=== PATIENT | male | born 1955 | race Caucasian/White ===

== ENCOUNTER → 2016-08-16 | Outpatient (CLI) | payer OTHER, MEDICARE ==
[~2016-08-16] MED LIST: ATOR40TA PO; BABY81CH PO; BRIM0.2S OU; BRIM2OPD OU; CEFT500T3 PO; CLOP75TA2 PO; COLA100C PO; FAMO40TA3 PO; FERR325T16 PO; FOLI1TAB2 PO; GLUC500T PO; GLUC850T OR; INSULANT SC; ISTA0.5S OU; LASIX PO; LATA5OPD OU; LOSA25TA8 PO; METO25TAB PO; MULTCAP PO; No Historical Meds; PERC5TAB8 OR; PERC7.5T8 OR; PERC7.5T8 PO; PERCOCET PO; PRIN5TAB PO; TIMO25OPD OU; TYLE650T30 PO; VITA-130 PO; XALA0.002 OU; ZOCO10TA PO; ertapenem IV
[2016-08-16 18:49] LABS: ALBUMIN 3.6 GM/DL (3.2-5.2); ALBUMIN/GLOBULIN RATIO 1.16 (1.00-1.93); BILIRUBIN,TOTAL 0.8 MG/DL (0.2-1.0); CALCIUM LEVEL 9.3 MG/DL (8.5-10.1); CREATININE FOR GFR 1.65 MG/DL (0.70-1.30); GLOMERULAR FILTRATION RATE 45.8 (>56); POTASSIUM SERUM 4.8 MEQ/L (3.5-5.1); TOTAL PROTEIN 6.7 GM/DL (6.4-8.2)
== END ==
LOC: M WUC 08:05
PROVIDERS: ATTEND Nurse Practitioner Family
DX: E11.9 Type 2 diabetes mellitus without complications (principal)

== ENCOUNTER → 2016-11-20 | Outpatient (CLI) | payer OTHER, MEDICARE ==
[~2016-11-20] MED LIST changes: -ATOR40TA PO; +ATOR40TA75 PO; -COLA100C PO; +COLA100C5 PO; -FOLI1TAB2 PO; +FOLI1TAB4 PO; -VITA-130 PO; +VITA500T PO; -XALA0.002 OU; +XALA0.007 OU
[2016-11-20 13:08] LABS: ALBUMIN 3.4 GM/DL (3.2-5.2); ALBUMIN/GLOBULIN RATIO 1.13 (1.00-1.93); BILIRUBIN,TOTAL 0.6 MG/DL (0.2-1.0); CALCIUM LEVEL 8.3 MG/DL (8.5-10.1); CREATININE FOR GFR 1.74 MG/DL (0.70-1.30); POTASSIUM SERUM 4.3 MEQ/L (3.5-5.1); TOTAL PROTEIN 6.4 GM/DL (6.4-8.2)
== END ==
LOC: M WUC 08:01
PROVIDERS: ATTEND Nurse Practitioner Family
DX: E11.9 Type 2 diabetes mellitus without complications (principal); E78.2 Mixed hyperlipidemia

== ENCOUNTER → 2017-02-21 | Outpatient (REF) | payer OTHER, MEDICARE ==
[2017-02-21 12:30] LABS: ALBUMIN 3.2 GM/DL (3.2-5.2); ALBUMIN/GLOBULIN RATIO 1.03 (1.00-1.93); BILIRUBIN,TOTAL 0.7 MG/DL (0.2-1.0); CALCIUM LEVEL 8.5 MG/DL (8.5-10.1); CREATININE FOR GFR 1.67 MG/DL (0.70-1.30); GLOMERULAR FILTRATION RATE 45.1 (>56); POTASSIUM SERUM 4.4 MEQ/L (3.5-5.1); TOTAL PROTEIN 6.3 GM/DL (6.4-8.2)
== END ==
LOC: M LABWUC 11:47
PROVIDERS: ATTEND Nurse Practitioner Family
DX: E11.9 Type 2 diabetes mellitus without complications (principal)

== ENCOUNTER → 2017-06-06 | Outpatient (CLI) | payer OTHER, MEDICARE ==
[2017-06-06 19:13] LABS: ALBUMIN 3.3 GM/DL (3.2-5.2); ALBUMIN/GLOBULIN RATIO 1.18 (1.00-1.93); ALKALINE PHOSPHATASE 86 U/L (45-117); ALT/SGPT 26 U/L (12-78); ANION GAP 11 MEQ/L (8-16); AST/SGOT 21 U/L (7-37); BILIRUBIN,TOTAL 0.5 MG/DL (0.2-1.0); BLOOD UREA NITROGEN 36 MG/DL (7-18); CALCIUM LEVEL 8.8 MG/DL (8.5-10.1); CARBON DIOXIDE LEVEL 21 MEQ/L (21-32); CHLORIDE LEVEL 111 MEQ/L (98-107); CREATININE FOR GFR 1.67 MG/DL (0.70-1.30); GLOMERULAR FILTRATION RATE 45.1 (>56); GLUCOSE, FASTING 148 MG/DL (70-105); POTASSIUM SERUM 4.5 MEQ/L (3.5-5.1); SODIUM LEVEL 143 MEQ/L (136-145); TOTAL PROTEIN 6.1 GM/DL (6.4-8.2)
[2017-06-06 19:29] LABS: ESTIMATED AVERAGE GLUCOSE 154 MG/DL (60-110)
== END ==
LOC: M WUC 08:05
DX: E11.9 Type 2 diabetes mellitus without complications (principal)

== ENCOUNTER → 2017-08-15 | Outpatient (CLI) | payer OTHER, MEDICARE ==
[2017-08-15 12:25] LABS: ALBUMIN 3.5 GM/DL (3.2-5.2); ALBUMIN/GLOBULIN RATIO 1.13 (1.00-1.93); ALKALINE PHOSPHATASE 112 U/L (45-117); ALT/SGPT 37 U/L (12-78); ANION GAP 7 MEQ/L (8-16); AST/SGOT 29 U/L (7-37); BILIRUBIN,TOTAL 0.8 MG/DL (0.2-1.0); BLOOD UREA NITROGEN 39 MG/DL (7-18); CALCIUM LEVEL 8.6 MG/DL (8.5-10.1); CARBON DIOXIDE LEVEL 20 MEQ/L (21-32); CHLORIDE LEVEL 113 MEQ/L (98-107); CREATININE FOR GFR 1.79 MG/DL (0.70-1.30); GLOMERULAR FILTRATION RATE 41.6 (>56); GLUCOSE, FASTING 125 MG/DL (70-100); SODIUM LEVEL 140 MEQ/L (136-145); TOTAL PROTEIN 6.6 GM/DL (6.4-8.2)
[2017-08-15 12:30] LABS: ESTIMATED AVERAGE GLUCOSE 151 MG/DL (60-110); HEMOGLOBIN A1c 6.9 %
== END ==
LOC: M WUC 08:17
DX: E11.9 Type 2 diabetes mellitus without complications (principal)
CPT/HCPCS: 80053

== ENCOUNTER → 2018-02-14 | Outpatient (CLI) | payer OTHER, MEDICARE ==
[2018-02-14 18:57] LABS: ESTIMATED AVERAGE GLUCOSE 197 MG/DL (60-110); HEMOGLOBIN A1c 8.5 %
== END ==
LOC: M LRY 09:16
DX: E11.9 Type 2 diabetes mellitus without complications (principal)
CPT/HCPCS: 83036

== ENCOUNTER → 2018-06-27 | Outpatient (CLI) | payer OTHER, MEDICARE ==
[~2018-06-27] MED LIST changes: +FOLI1TAB11 PO; -FOLI1TAB4 PO; +LOSA25TA14 PO; -LOSA25TA8 PO
[2018-06-27 10:11] LABS: ALBUMIN 3.2 GM/DL (3.2-5.2); BILIRUBIN,TOTAL 0.6 MG/DL (0.2-1.0); CALCIUM LEVEL 8.4 MG/DL (8.8-10.2); CHOLESTEROL RISK RATIO 3.888 (<5); CREATININE FOR GFR 1.77 MG/DL (0.70-1.30); POTASSIUM SERUM 4.8 MEQ/L (3.5-5.1); TOTAL PROTEIN 6.1 GM/DL (6.4-8.2)
[2018-06-27 10:25] LABS: HEMOGLOBIN A1c 7.8 %
== END ==
LOC: M WUC 08:28
PROVIDERS: ATTEND Nurse Practitioner Family
DX: E11.9 Type 2 diabetes mellitus without complications (principal); E78.2 Mixed hyperlipidemia

== ENCOUNTER → 2018-10-10 | Outpatient (CLI) | payer OTHER, MEDICARE ==
[~2018-10-10] MED LIST changes: +LATA0.0013 OU; -LATA5OPD OU; +METO-346 PO; -METO25TAB PO; +TIMO0.2525 OU; -TIMO25OPD OU
[2018-10-10 18:16] LABS: ALBUMIN 3.1 GM/DL (3.2-5.2); BILIRUBIN,TOTAL 0.7 MG/DL (0.2-1.0); CALCIUM LEVEL 9.2 MG/DL (8.8-10.2); CHOLESTEROL RISK RATIO 4.105 (<5); CREATININE FOR GFR 1.84 MG/DL (0.70-1.30); POTASSIUM SERUM 5.1 MEQ/L (3.5-5.1); TOTAL PROTEIN 6.2 GM/DL (6.4-8.2)
[2018-10-10 18:34] LABS: HEMOGLOBIN A1c 7.7 %
== END ==
LOC: M WUC 08:02
PROVIDERS: ATTEND Nurse Practitioner Family
DX: E11.22 Type 2 diabetes mellitus with diabetic chronic kidney disease (principal); N18.9 Chronic kidney disease, unspecified; E78.2 Mixed hyperlipidemia

== ENCOUNTER → 2019-02-13 | Outpatient (CLI) | payer OTHER, MEDICARE ==
[2019-02-13 17:34] LABS: CREATININE FOR GFR 2.05 MG/DL (0.70-1.30); GLOMERULAR FILTRATION RATE 35.3 (>49)
== END ==
LOC: M WUC 08:13
PROVIDERS: ATTEND Surgery Vascular Surgery
DX: Z01.818 Encounter for other preprocedural examination (principal)

== ENCOUNTER → 2019-02-13 | Outpatient (CLI) | payer OTHER, MEDICARE ==
[2019-02-13 17:33] LABS: CALCIUM LEVEL 8.8 MG/DL (8.8-10.2); CREATININE FOR GFR 2.03 MG/DL (0.70-1.30); GLOMERULAR FILTRATION RATE 35.7 (>49); POTASSIUM SERUM 4.4 MEQ/L (3.5-5.1)
[2019-02-13 18:17] LABS: HEMOGLOBIN A1c 6.6 %
== END ==
LOC: M WUC 08:08
PROVIDERS: ATTEND Nurse Practitioner Family
DX: E11.9 Type 2 diabetes mellitus without complications (principal); N18.9 Chronic kidney disease, unspecified

== ENCOUNTER → 2019-08-02 | Outpatient (REF) | payer OTHER, MEDICARE ==
[~2019-08-02] MED LIST changes: +VITA-243 PO; -VITA500T PO
[2019-08-02 11:43] LABS: HEMATOCRIT 39.9 % (42.0-52.0)
[2019-08-02 11:48] LABS: HEMATOCRIT 39.5 % (42.0-52.0); HEMOGLOBIN 12.8 g/dl (13.5-17.5); MEAN CORPUSCULAR HEMOGLOBIN 31.1 pg (27.0-33.0); MEAN CORPUSCULAR HGB CONC 32.4 g/dl (32.0-36.5); MEAN CORPUSCULAR VOLUME 95.9 fl (80.0-96.0); PLATELET COUNT, AUTOMATED 217 10^3/uL (150-450); RED BLOOD COUNT 4.12 10^6/uL (4.30-6.10)
[2019-08-02 13:22] LABS: HEMOGLOBIN A1c 6.5 %
== END ==
LOC: M SFHCPLAZ 09:45
PROVIDERS: ATTEND Family Medicine
DX: D64.9 Anemia, unspecified (principal); E11.22 Type 2 diabetes mellitus with diabetic chronic kidney disease

== ENCOUNTER → 2020-08-21 | Outpatient (REF) | payer MEDICARE, OTHER ==
[2020-08-21 15:23] LABS: CALCIUM LEVEL 8.8 MG/DL (8.8-10.2); CHOLESTEROL RISK RATIO 3.769 (<5); CREATININE FOR GFR 2.21 MG/DL (0.70-1.30); GLOMERULAR FILTRATION RATE 32.3 (>49); POTASSIUM SERUM 4.8 MEQ/L (3.5-5.1)
[2020-08-21 15:29] LABS: TOTAL 25(OH) VITAMIN D 42.3 NG/ML (30.0-100.0)
[2020-08-21 16:05] LABS: HEMOGLOBIN A1c 6.4 %
== END ==
LOC: M SFHCPLAZ 11:05
PROVIDERS: ATTEND Family Medicine
DX: E11.22 Type 2 diabetes mellitus with diabetic chronic kidney disease (principal); E78.2 Mixed hyperlipidemia; N18.32 Chronic kidney disease, stage 3b; E55.9 Vitamin D deficiency, unspecified

== ENCOUNTER → 2021-08-14 | Outpatient (REF) | payer OTHER, MEDICARE ==
[~2021-08-14] MED LIST changes: +FERR324T21 PO; -FERR325T16 PO; +LOSA25TA13 PO; -LOSA25TA14 PO
[2021-08-14 17:33] LABS: CHOLESTEROL RISK RATIO 3.888 (<5)
== END ==
LOC: M LAB REF 16:47
PROVIDERS: ATTEND Nurse Practitioner Family
DX: E78.5 Hyperlipidemia, unspecified (principal)

== ENCOUNTER → 2021-08-19 | Outpatient (CLI) | payer OTHER, MEDICARE ==
[2021-08-19 19:09] LABS: HEMOGLOBIN A1c 6.4 %
== END ==
LOC: M PLALAB 15:19
PROVIDERS: ATTEND Family Medicine
DX: E11.22 Type 2 diabetes mellitus with diabetic chronic kidney disease (principal)

== ENCOUNTER → 2022-02-18 | Outpatient (REF) | payer OTHER, MEDICARE ==
[~2022-02-18] MED LIST changes: +SIMV-252 PO; -ZOCO10TA PO
[2022-02-18 19:44] LABS: CREATININE,RANDOM URINE 20.1 MG/DL; TOTAL PROTEIN,RANDOM URINE 263.4 MG/DL (0.0-12.0)
== END ==
LOC: M LAB REF 17:27
PROVIDERS: ATTEND Internal Medicine Nephrology
DX: E11.22 Type 2 diabetes mellitus with diabetic chronic kidney disease (principal)

== ENCOUNTER → 2022-05-26 | Outpatient (REF) | payer MEDICARE, OTHER ==
[2022-05-26 18:28] LABS: MAU/CREAT RATIO 6402.7 MCG/MG (0.0-30.0)
== END ==
LOC: M LAB REF 16:58
PROVIDERS: ATTEND Internal Medicine Nephrology
DX: E11.22 Type 2 diabetes mellitus with diabetic chronic kidney disease (principal)

== ENCOUNTER → 2022-07-24 | Outpatient (REF) | payer MEDICARE, OTHER ==
[2022-07-24 18:02] LABS: POTASSIUM SERUM 4.6 MMOL/L (3.5-5.1)
== END ==
LOC: M LAB REF 17:18
PROVIDERS: ATTEND Internal Medicine Nephrology
DX: N18.32 Chronic kidney disease, stage 3b (principal)

== ENCOUNTER → 2022-09-23 | Outpatient (REF) | payer MEDICARE, OTHER ==
[2022-09-23 18:26] LABS: BASO % 0.4 % (0.0-1.0); EOS # 0.2 10^3/uL (0.0-0.5); EOS % 2.5 % (0.0-3.0); HEMATOCRIT 33.9 % (42.0-52.0); HEMOGLOBIN 10.8 g/dl (13.5-17.5); LYMPH # 1.2 10^3/uL (1.5-5.0); LYMPH % 12.7 % (24.0-44.0); MEAN CORPUSCULAR HEMOGLOBIN 31.6 pg (27.0-33.0); MEAN CORPUSCULAR HGB CONC 31.9 g/dl (32.0-36.5); MEAN CORPUSCULAR VOLUME 99.1 fl (80.0-96.0); MONO # 0.8 10^3/uL (0.0-0.8); MONO % 8.7 % (2.0-8.0); NEUTROPHILS # 7.2 10^3/uL (1.5-8.5); NEUTROPHILS % 75.1 % (36.0-66.0); PLATELET COUNT, AUTOMATED 222 10^3/uL (150-450); RED BLOOD COUNT 3.42 10^6/uL (4.30-6.10); WHITE BLOOD COUNT 9.6 10^3/uL (4.0-10.0)
[2022-09-23 18:49] LABS: ALBUMIN 2.3 G/DL (3.2-5.2); BILIRUBIN,TOTAL 0.4 MG/DL (0.3-1.2); CHOLESTEROL RISK RATIO 3.72 (<5); CREATININE FOR GFR 5.04 MG/DL (0.70-1.30); GLOMERULAR FILTRATION RATE 12.3 (>49); LDL CHOLESTEROL 77.4 MG/DL (<100); POTASSIUM SERUM 4.4 MMOL/L (3.5-5.1); TOTAL PROTEIN 5.1 G/DL (5.7-8.2)
[2022-09-23 20:11] LABS: HEMOGLOBIN A1c 5.1 % (4.0-6.0)
== END ==
LOC: M LAB REF 17:56
PROVIDERS: ATTEND Physician Assistant
DX: Z12.5 Encounter for screening for malignant neoplasm of prostate (principal); E11.22 Type 2 diabetes mellitus with diabetic chronic kidney disease; I10 Essential (primary) hypertension
CPT/HCPCS: 80053; 80061; 83036; 85025; G0103

== ENCOUNTER → 2023-01-06 | Outpatient (CLI) | payer MEDICARE, OTHER | LOC: M RAD 12:06 | PROVIDERS: ATTEND Surgery Vascular Surgery | DX: N18.6 End stage renal disease (principal) ==

== ENCOUNTER → 2023-01-30 | Outpatient (REF) | payer MEDICARE, OTHER ==
[~2023-01-30] MED LIST changes: +ACET650T3 PO; +ALLO100T PO; +ALLO300T2 PO; +ATOR80TA59 PO; +CALC1CAP31 PO; +CARV12.5 PO; +CARV6.25 PO; +FERR325T81 PO; +FURO40TA2 PO; +INSU100V11 SQ; +MIDO5TA PO; +TRUL10IN SC; +VELT1POW PO
[2023-01-30 18:43] LABS: HEPATITIS B SURFACE ANTIBODY NEGATIVE (POSITIVE)
[2023-01-30 19:15] LABS: HEPATITIS C VIRUS ABY INDEX 0.13 INDEX (<0.8)
[2023-01-30 19:16] LABS: HEPATITIS B CORE ANTIBODY IGM NEGATIVE (NEGATIVE)
== END ==
LOC: M LAB REF 17:09
PROVIDERS: ATTEND Internal Medicine Nephrology
DX: N18.6 End stage renal disease (principal)

== ENCOUNTER 2023-02-02 07:04 | Observation (INO) | payer MEDICARE, OTHER ==
[2023-02-02] VITALS (9 sets, daily range): BP systolic 72–85; BP diastolic 42–45; TEMP 97.9–98.4; O2SAT 95–99
[~2023-02-02] VITALS: Ht 172.7 cm; Wt 92.8 kg
[~2023-02-02 07:04] MED LIST changes: -ACET650T3 PO; -ALLO100T PO; -ALLO300T2 PO; -ATOR80TA59 PO; -CALC1CAP31 PO; -CARV12.5 PO; -CARV6.25 PO; -FERR325T81 PO; -FURO40TA2 PO; -INSU100V11 SQ; -MIDO5TA PO; -TRUL10IN SC; -VELT1POW PO
[2023-02-02] MEDS ORDERED: ceFAZolin SOD 2 GM in IV 1 EA IV ONE ×2 (07:05→08:40)
[2023-02-02] MEDS ORDERED: fentaNYL 100 MCG/2 ML INJECTION As Ordered ONE (07:07)
[2023-02-02] MEDS ORDERED: HEPARIN 1,000UNITS/ML 10ML VIAL (FOR RADIOLOGY & DIALYSIS ONLY) As Ordered ONE (07:08)
[2023-02-02] MEDS ORDERED: MIDAZOLAM INJ 2MG/2ML VIAL As Ordered ONE (07:08)
[2023-02-02] MEDS ORDERED: LIDOCAINE W/EPINEPHRINE 1% 20ML VIAL As Ordered ONE (07:08)
[2023-02-02] MEDS ORDERED: ISOVUE-300 61% 100ML VIAL As Ordered ONE (07:09)
[2023-02-02] MEDS ORDERED: ceFAZolin 2 GM/D5W 50 ML IV BAG As Ordered ONE (07:09)
[2023-02-02 07:44] LABS: HEMATOCRIT 28.1 % (42.0-52.0); HEMOGLOBIN 8.9 g/dl (13.5-17.5); MEAN CORPUSCULAR HEMOGLOBIN 31.3 pg (27.0-33.0); MEAN CORPUSCULAR HGB CONC 31.7 g/dl (32.0-36.5); MEAN CORPUSCULAR VOLUME 98.9 fl (80.0-96.0); PLATELET COUNT, AUTOMATED 212 10^3/uL (150-450); RED BLOOD COUNT 2.84 10^6/uL (4.30-6.10); WHITE BLOOD COUNT 11.8 10^3/uL (4.0-10.0)
[2023-02-02 08:05] LABS: INR 1.25; PARTIAL THROMBOPLASTIN TIME 35.2 SECONDS (24.8-34.2); PROTHROMBIN TIME 15.4 SECONDS (12.5-14.5)
[2023-02-02 08:16] LABS: CALCIUM LEVEL 7.8 MG/DL (8.3-10.6); CREATININE FOR GFR 7.54 MG/DL (0.70-1.30); GLOMERULAR FILTRATION RATE 7.8 (>49); POTASSIUM SERUM 3.8 MMOL/L (3.5-5.1)
[2023-02-02] MEDS: NS 1,000 ML IV SCH ×2 (08:40→22:00)
[2023-02-02] MEDS ORDERED: MIDODRINE 5 MG TAB PO ONE (09:00)
[2023-02-02] MEDS ORDERED: ACETAMINOPHEN TAB 650MG DOSE (2X325MG) PO PRN (09:55)
[2023-02-02] MEDS ORDERED: MOM 30ML SUSPENSION UDC PO PRN (09:55)
[2023-02-02] MEDS ORDERED: DEXTROSE 50% 50ML SYRINGE IV PRN (10:20)
[2023-02-02] MEDS ORDERED: GLUCAGON INJ 1MG VIAL SC PRN (10:20)
[2023-02-02] MEDS ORDERED: GLUCOSE 4GM CHEW TABLET PO PRN (10:20)
[2023-02-02] MEDS ORDERED: SODIUM CHLORIDE 0.9% 1000ML IV PRN (11:25)
[2023-02-02] MEDS ORDERED: DARBEPOETIN 200MCG/0.4ML *DIALYSIS* SYRINGE IV SCH (11:25)
[2023-02-02] MEDS ORDERED: HEPARIN 1,000UNITS/ML 10ML VIAL (FOR RADIOLOGY & DIALYSIS ONLY) XX SCH (11:25)
[2023-02-02] MEDS ORDERED: HEPARIN 1,000UNITS/ML 10ML VIAL (FOR RADIOLOGY & DIALYSIS ONLY) IV PRN (11:25)
[2023-02-02 11:31] LABS: FERRITIN 624.8 NG/ML (10.5-307.3)
[2023-02-02 11:32] LABS: FOLATE 5.16 NG/ML (>5.4)
[2023-02-02 11:33] LABS: BILIRUBIN,DIRECT 0.2 MG/DL (<0.4); BILIRUBIN,TOTAL 0.3 MG/DL (0.3-1.2); PERCENT SATURATION 35.3 % (19.7-50.0); TOTAL PROTEIN 4.8 G/DL (5.7-8.2)
[2023-02-02] MEDS ORDERED: MED REC IN PROGRESS XX SCH (11:40)
[2023-02-02] MEDS ORDERED: TRUL10IN SC (11:45)
[2023-02-02] MEDS ORDERED: CARV6.25 PO (11:45)
[2023-02-02] MEDS ORDERED: ALLO100T PO (11:45)
[2023-02-02] MEDS ORDERED: VELT1POW PO (11:45)
[2023-02-02] MEDS ORDERED: INSU100V11 SQ ×2 (11:45)
[2023-02-02] MEDS ORDERED: CALC1CAP31 PO (11:45)
[2023-02-02] MEDS: INSULIN LISPRO (NovoLOG) PER UNIT SC SCH ×2 (12:00→17:30)
[2023-02-02] MEDS ORDERED: ATOR80TA59 PO (13:14)
[2023-02-02] MEDS ORDERED: CARV12.5 PO (13:14)
[2023-02-02] MEDS ORDERED: ALLO300T2 PO (13:14)
[2023-02-02] MEDS ORDERED: FERR325T81 PO (13:14)
[2023-02-02] MEDS ORDERED: ACET650T3 PO (13:14)
[2023-02-02] MEDS ORDERED: FURO40TA2 PO (13:14)
[2023-02-02] MEDS ORDERED: HOME MED LIST COMPLETE! XX SCH (13:25)
[2023-02-02] MEDS: MIDODRINE 5 MG TAB PO SCH ×2 (13:49→17:17)
[2023-02-02] MEDS ORDERED: FOLIC ACID 1 MG in NS 50 ML IV SCH (15:00)
[2023-02-02] MEDS: DOCUSATE SODIUM 100MG CAPSULE PO SCH (20:55)
[2023-02-02] MEDS ORDERED: INSULIN LISPRO (NovoLOG) PER UNIT SC SCH (21:00)
[2023-02-02] MEDS ORDERED: allopurinoL 300 MG TAB PO SCH (21:00)
[2023-02-02] MEDS ORDERED: LEVEMIR (INSULIN DETEMIR) 1 UNITS/0.01ML SC SCH (21:00)
[2023-02-03 03:36] VITALS: BP 85/46; TEMP 97; O2SAT 98
[2023-02-03 05:51] LABS: HEMATOCRIT 25.9 % (42.0-52.0); HEMOGLOBIN 8.2 g/dl (13.5-17.5); MEAN CORPUSCULAR HEMOGLOBIN 31.2 pg (27.0-33.0); MEAN CORPUSCULAR HGB CONC 31.7 g/dl (32.0-36.5); MEAN CORPUSCULAR VOLUME 98.5 fl (80.0-96.0); PLATELET COUNT, AUTOMATED 191 10^3/uL (150-450); RED BLOOD COUNT 2.63 10^6/uL (4.30-6.10); WHITE BLOOD COUNT 8.9 10^3/uL (4.0-10.0)
[2023-02-03] MEDS ORDERED: SODIUM CHLORIDE 0.9% 1000ML IV PRN (06:00)
[2023-02-03] MEDS ORDERED: HEPARIN 1,000UNITS/ML 10ML VIAL (FOR RADIOLOGY & DIALYSIS ONLY) XX SCH (06:00)
[2023-02-03] MEDS ORDERED: HEPARIN 1,000UNITS/ML 10ML VIAL (FOR RADIOLOGY & DIALYSIS ONLY) IV PRN (06:00)
[2023-02-03 06:23] LABS: ALBUMIN 1.9 G/DL (3.2-5.2); CALCIUM LEVEL 7.4 MG/DL (8.3-10.6); CREATININE FOR GFR 5.68 MG/DL (0.70-1.30); GLOMERULAR FILTRATION RATE 10.8 (>49); PHOSPHORUS LEVEL 6.4 MG/DL (2.4-5.1); POTASSIUM SERUM 2.7 MMOL/L (3.5-5.1)
[2023-02-03] MEDS: MIDODRINE 5 MG TAB PO SCH ×2 (07:27→13:01)
[2023-02-03] MEDS: INSULIN LISPRO (NovoLOG) PER UNIT SC SCH ×2 (07:30→12:00)
[2023-02-03 07:37] VITALS: TEMP 97.8; O2SAT 98
[2023-02-03] MEDS ORDERED: CLOPIDOGREL 75 MG TAB PO SCH (09:00)
[2023-02-03 12:10] VITALS: TEMP 96.9; O2SAT 97
[2023-02-03] MEDS ORDERED: FOLI1TAB11 PO (12:24)
[2023-02-03] MEDS ORDERED: MIDO5TA PO (12:24)
[2023-02-03] MEDS: DOCUSATE SODIUM 100MG CAPSULE PO SCH (13:00)
[2023-02-04] MEDS ORDERED: CALCITRIOL 0.25 MCG CAP (S0169) PO SCH (09:00)
== END 2023-02-03 15:53 | disposition home health service (06) ==
LOC: M IRPRO 07:04 → M PCU 07:05
PROVIDERS: ADMIT Student in an Organized Health Care Education/Training Program; ATTEND Student in an Organized Health Care Education/Training Program
DX: J81.0 Acute pulmonary edema (principal); N18.6 End stage renal disease; I50.30 Unspecified diastolic (congestive) heart failure; E78.5 Hyperlipidemia, unspecified; E11.9 Type 2 diabetes mellitus without complications; D64.9 Anemia, unspecified; K21.9 Gastro-esophageal reflux disease without esophagitis; I13.2 Hypertensive heart and chronic kidney disease with heart failure and with stage 5 chronic kidney disease, or end stage renal disease; I73.9 Peripheral vascular disease, unspecified; I65.29 Occlusion and stenosis of unspecified carotid artery; Z79.02 Long term (current) use of antithrombotics/antiplatelets; Z79.4 Long term (current) use of insulin; E87.6 Hypokalemia; Z79.899 Other long term (current) drug therapy
CPT/HCPCS: 36415; 36558; 71045; 80048; 80069; 80076; 82607; 82728; 82746; 83550; 83605; 83735; 83880; 85027; 85610; 85730; 86850; 86900; 86901; 87635; 93005; 93306; 96361; 96374; 97161; 97530; 99152; 99153; G0257; G0378; J0690; J0882; J1815; J2250; J3010

== ENCOUNTER 2023-08-31 13:51 | Inpatient (IN) | payer MEDICARE, OTHER ==
[~2023-08-31] VITALS: Ht 172.7 cm; Wt 73.1 kg
[~2023-08-31 13:51] MED LIST changes: +ACET650T3 PO; +ALLO100T PO; +ALLO300T2 PO; +ATOR80TA59 PO; +CALC1CAP31 PO; +CARV12.5 PO; +CARV6.25 PO; +FERR325T81 PO; +FURO40TA2 PO; +INSU100V11 SQ; +MIDO5TA PO; +TRUL10IN SC; +VELT1POW PO
[2023-08-31 17:33] LABS: BASO # 0.1 10^3/uL (0.0-0.2); BASO % 0.8 % (0.0-1.0); EOS % 0.4 % (0.0-3.0); HEMATOCRIT 34.5 % (42.0-52.0); HEMOGLOBIN 11.3 g/dl (13.5-17.5); LYMPH # 1.1 10^3/uL (1.5-5.0); LYMPH % 12.9 % (24.0-44.0); MEAN CORPUSCULAR HEMOGLOBIN 31.7 pg (27.0-33.0); MEAN CORPUSCULAR HGB CONC 32.8 g/dl (32.0-36.5); MEAN CORPUSCULAR VOLUME 96.6 fl (80.0-96.0); MONO # 0.7 10^3/uL (0.0-0.8); MONO % 8.6 % (2.0-8.0); NEUTROPHILS # 6.4 10^3/uL (1.5-8.5); NEUTROPHILS % 77.1 % (36.0-66.0); PLATELET COUNT, AUTOMATED 284 10^3/uL (150-450); RED BLOOD COUNT 3.57 10^6/uL (4.30-6.10); WHITE BLOOD COUNT 8.4 10^3/uL (4.0-10.0)
[2023-08-31 17:36] LABS: VENOUS BASE EXCESS 0.1 (-2.0-2.0); VENOUS HCO3 24.6 MMOL/L (23.0-27.0); VENOUS PARTIAL PRESSURE CO2 39.5 mmHg (38.0-50.0); VENOUS PARTIAL PRESSURE O2 56.9 mmHg (30.0-50.0); VENOUS PH 7.413 UNITS (7.330-7.430); VENOUS STANDARD HCO3 24.4 MMOL/L; VENOUS TOTAL CO2 25.9 MMOL/L (24.0-28.0)
[2023-08-31 17:46] LABS: ABG BASE EXCESS 1.2 (-2.0-2.0); ABG HCO3 24.3 MMOL/L (22.0-26.0); ABG O2 SATURATION 94.5 % (95.0-99.0); ABG PARTIAL PRESSURE CO2 33.4 mmHg (35.0-45.0); ABG PARTIAL PRESSURE O2 72.3 mmHg (75.0-100.0); ABG STANDARD HCO3 25.5 MMOL/L. (22.0-26.0); ABG TOTAL CO2 25.3 MMOL/L (23.0-31.0); ABG pH (ARTERIAL) 7.479 UNITS (7.350-7.450)
[2023-08-31] MEDS ORDERED: ASPIRIN 81MG CHEW TABLET PO ONE (17:55)
[2023-08-31 17:59] LABS: ALBUMIN 2.7 G/DL (3.2-5.2); BILIRUBIN,DIRECT 0.5 MG/DL (<0.4); BILIRUBIN,TOTAL 1.4 MG/DL (0.3-1.2); CALCIUM LEVEL 9.3 MG/DL (8.3-10.6); CK-MB VALUE MASS 1.9 NG/ML (<3.6); CREATININE FOR GFR 4.45 MG/DL (0.70-1.30); GLOMERULAR FILTRATION RATE 14.3 (>49); POTASSIUM SERUM 4.4 MMOL/L (3.5-5.1); TOTAL PROTEIN 6.1 G/DL (5.7-8.2)
[2023-08-31 18:00] LABS: INR 1.11; PARTIAL THROMBOPLASTIN TIME 31.5 SECONDS (24.8-34.2); PROTHROMBIN TIME 13.9 SECONDS (12.5-14.5)
[2023-08-31 18:01] LABS: FREE T4 1.1 NG/DL (0.89-1.76); THYROID STIMULATING HORMONE 2.583 uIU/ML (0.55-4.78)
[2023-08-31 18:31] LABS: RSV AMPLIFICATION NEGATIVE (NEGATIVE)
[2023-08-31] MEDS ORDERED: DEXTROSE 50% 50ML SYRINGE As Ordered ONE (18:39)
[2023-08-31] MEDS: DEXTROSE 50% 50ML SYRINGE IV STA (18:42)
[2023-08-31 20:08] LABS: CK-MB VALUE MASS 1.5 NG/ML (<3.6)
[2023-08-31 20:10] LABS: MB/CK RELATIVE INDEX 1.7 (< OR =4)
[2023-08-31] MEDS: INSULIN LISPRO (NovoLOG) PER UNIT SC SCH (21:00)
[2023-08-31] MEDS ORDERED: MIDO10TA PO (21:43)
[2023-08-31] MEDS ORDERED: HOME MED LIST COMPLETE! XX SCH (21:45)
[2023-08-31] MEDS ORDERED: DEXTROSE 50% 50ML SYRINGE IV PRN (22:45)
[2023-08-31] MEDS ORDERED: GLUCAGON INJ 1MG VIAL SC PRN (22:45)
[2023-08-31] MEDS ORDERED: GLUCOSE 4GM CHEW TABLET PO PRN (22:45)
[2023-08-31] MEDS ORDERED: MOM 30ML SUSPENSION UDC PO PRN (22:45)
[2023-08-31] MEDS: allopurinoL 300 MG TAB PO SCH (23:54)
[2023-08-31] MEDS: ATORVASTATIN 20 MG TAB PO SCH (23:54)
[2023-09-01] VITALS (8 sets, daily range): BP systolic 90–143; BP diastolic 52–76; TEMP 96.9–97.6; O2SAT 93–99
[2023-09-01 05:35] LABS: HEMATOCRIT 34.8 % (42.0-52.0); HEMOGLOBIN 10.7 g/dl (13.5-17.5); MEAN CORPUSCULAR HEMOGLOBIN 30.8 pg (27.0-33.0); MEAN CORPUSCULAR HGB CONC 30.7 g/dl (32.0-36.5); MEAN CORPUSCULAR VOLUME 100.3 fl (80.0-96.0); PLATELET COUNT, AUTOMATED 230 10^3/uL (150-450); RED BLOOD COUNT 3.47 10^6/uL (4.30-6.10); WHITE BLOOD COUNT 8.8 10^3/uL (4.0-10.0)
[2023-09-01] MEDS ORDERED: HEPARIN 1,000UNITS/ML 10ML VIAL (FOR RADIOLOGY & DIALYSIS ONLY) IV PRN (06:00)
[2023-09-01] MEDS ORDERED: HEPARIN 1,000UNITS/ML 10ML VIAL (FOR RADIOLOGY & DIALYSIS ONLY) XX SCH (06:00)
[2023-09-01] MEDS ORDERED: SODIUM CHLORIDE 0.9% 1000ML IV PRN (06:00)
[2023-09-01] MEDS: HEPARIN SOD (PORCINE) 5000UNITS/ML 1ML VIAL/SYRINGE SC SCH (06:03)
[2023-09-01 06:07] LABS: ALBUMIN 2.5 G/DL (3.2-5.2); BILIRUBIN,TOTAL 1.3 MG/DL (0.3-1.2); CREATININE FOR GFR 4.45 MG/DL (0.70-1.30); GLOMERULAR FILTRATION RATE 14.3 (>49); POTASSIUM SERUM 3.8 MMOL/L (3.5-5.1); TOTAL PROTEIN 5.8 G/DL (5.7-8.2)
[2023-09-01] MEDS: INSULIN LISPRO (NovoLOG) PER UNIT SC SCH (07:30)
[2023-09-01] MEDS: DOCUSATE SODIUM 100MG CAPSULE PO SCH (09:00)
[2023-09-01] MEDS: MIDODRINE 5 MG TAB PO SCH (09:09)
[2023-09-01] MEDS: FOLIC ACID 1MG TAB PO SCH (13:58)
[2023-09-01] MEDS: CLOPIDOGREL 75 MG TAB PO SCH (13:58)
[2023-09-02] VITALS (9 sets, daily range): BP systolic 64–102; BP diastolic 42–53; TEMP 96.9–97.5; O2SAT 94–96
[2023-09-02 05:46] LABS: HEMATOCRIT 33.4 % (42.0-52.0); HEMOGLOBIN 10.7 g/dl (13.5-17.5); MEAN CORPUSCULAR HEMOGLOBIN 31.2 pg (27.0-33.0); MEAN CORPUSCULAR VOLUME 97.4 fl (80.0-96.0); PLATELET COUNT, AUTOMATED 235 10^3/uL (150-450); RED BLOOD COUNT 3.43 10^6/uL (4.30-6.10); WHITE BLOOD COUNT 7.6 10^3/uL (4.0-10.0)
[2023-09-02] MEDS ORDERED: SODIUM CHLORIDE 0.9% 1000ML IV PRN (06:00)
[2023-09-02] MEDS ORDERED: HEPARIN 1,000UNITS/ML 10ML VIAL (FOR RADIOLOGY & DIALYSIS ONLY) XX SCH (06:00)
[2023-09-02] MEDS ORDERED: HEPARIN 1,000UNITS/ML 10ML VIAL (FOR RADIOLOGY & DIALYSIS ONLY) IV PRN (06:00)
[2023-09-02 06:06] LABS: CREATININE FOR GFR 3.47 MG/DL (0.70-1.30); MAGNESIUM LEVEL 1.9 MG/DL (1.8-2.4); POTASSIUM SERUM 3.8 MMOL/L (3.5-5.1)
[2023-09-02] MEDS: MIDODRINE 5 MG TAB PO ONE (18:42)
[2023-09-03 00:27] VITALS: BP 73/42; TEMP 97.7
[2023-09-03 03:52] VITALS: BP 80/49; TEMP 97
[2023-09-03] MEDS ORDERED: HEPARIN 1,000UNITS/ML 10ML VIAL (FOR RADIOLOGY & DIALYSIS ONLY) XX SCH (06:00)
[2023-09-03] MEDS ORDERED: HEPARIN 1,000UNITS/ML 10ML VIAL (FOR RADIOLOGY & DIALYSIS ONLY) IV PRN (06:00)
[2023-09-03] MEDS ORDERED: SODIUM CHLORIDE 0.9% 1000ML IV PRN (06:00)
[2023-09-03 07:06] LABS: BASO # 0.1 10^3/uL (0.0-0.2); BASO % 1.6 % (0.0-1.0); EOS # 0.2 10^3/uL (0.0-0.5); EOS % 2.7 % (0.0-3.0); HEMATOCRIT 33.7 % (42.0-52.0); HEMOGLOBIN 10.9 g/dl (13.5-17.5); LYMPH # 1.8 10^3/uL (1.5-5.0); LYMPH % 23.8 % (24.0-44.0); MEAN CORPUSCULAR HEMOGLOBIN 31.1 pg (27.0-33.0); MEAN CORPUSCULAR HGB CONC 32.3 g/dl (32.0-36.5); MONO % 13.1 % (2.0-8.0); NEUTROPHILS # 4.5 10^3/uL (1.5-8.5); NEUTROPHILS % 58.4 % (36.0-66.0); PLATELET COUNT, AUTOMATED 253 10^3/uL (150-450); RED BLOOD COUNT 3.51 10^6/uL (4.30-6.10); WHITE BLOOD COUNT 7.7 10^3/uL (4.0-10.0)
[2023-09-03 07:25] LABS: ALBUMIN 2.6 G/DL (3.2-5.2); BILIRUBIN,TOTAL 1.2 MG/DL (0.3-1.2); CALCIUM LEVEL 8.5 MG/DL (8.3-10.6); CREATININE FOR GFR 4.48 MG/DL (0.70-1.30); GLOMERULAR FILTRATION RATE 14.1 (>49); MAGNESIUM LEVEL 1.9 MG/DL (1.8-2.4); POTASSIUM SERUM 3.7 MMOL/L (3.5-5.1); TOTAL PROTEIN 5.9 G/DL (5.7-8.2)
== END 2023-09-03 15:15 | disposition home or self-care (01) | DRG 280 ==
LOC: M ED 13:51 → M ED INP 22:42 → ENRESERV 09-01 01:41 → M PCU 09-01 02:10 → M MS5PR 09-02 16:38
PROVIDERS: ADMIT Family Medicine; ATTEND Family Medicine
PROC: B246ZZZ Ultrasonography of Right and Left Heart (ICD-10-PCS; principal; 2023-09-02)
PROC: 5A1D70Z Performance of Urinary Filtration, Intermittent, Less than 6 Hours Per Day (ICD-10-PCS; 2023-09-02)
DX: I13.2 Hypertensive heart and chronic kidney disease with heart failure and with stage 5 chronic kidney disease, or end stage renal disease (principal); I21.A1 Myocardial infarction type 2; N18.6 End stage renal disease; J81.1 Chronic pulmonary edema; I50.9 Heart failure, unspecified; E11.22 Type 2 diabetes mellitus with diabetic chronic kidney disease; E11.51 Type 2 diabetes mellitus with diabetic peripheral angiopathy without gangrene; E78.5 Hyperlipidemia, unspecified; I73.9 Peripheral vascular disease, unspecified; K21.9 Gastro-esophageal reflux disease without esophagitis; I25.10 Atherosclerotic heart disease of native coronary artery without angina pectoris; E11.319 Type 2 diabetes mellitus with unspecified diabetic retinopathy without macular edema; I95.89 Other hypotension; Z95.2 Presence of prosthetic heart valve; Z99.2 Dependence on renal dialysis; Z89.421 Acquired absence of other right toe(s); Z87.891 Personal history of nicotine dependence; Z79.4 Long term (current) use of insulin; Z79.899 Other long term (current) drug therapy; Z91.040 Latex allergy status; Z11.52 Encounter for screening for COVID-19; Z95.5 Presence of coronary angioplasty implant and graft

== ENCOUNTER 2023-11-02 19:38 | Inpatient (IN) | payer MEDICARE, OTHER ==
[~2023-11-02] VITALS: Ht 172.7 cm; Wt 66.3 kg
[~2023-11-02 19:38] MED LIST changes: +INSU100V11 SC; +MIDO10TA PO
[2023-11-02 20:46] LABS: BASO # 0.1 10^3/uL (0.0-0.2); BASO % 0.6 % (0.0-1.0); EOS # 0.1 10^3/uL (0.0-0.5); EOS % 1.5 % (0.0-3.0); HEMATOCRIT 36.4 % (42.0-52.0); HEMOGLOBIN 12.1 g/dl (13.5-17.5); LYMPH # 1.1 10^3/uL (1.5-5.0); LYMPH % 12.4 % (24.0-44.0); MEAN CORPUSCULAR HGB CONC 33.2 g/dl (32.0-36.5); MEAN CORPUSCULAR VOLUME 96.3 fl (80.0-96.0); MONO # 0.7 10^3/uL (0.0-0.8); MONO % 8.6 % (2.0-8.0); NEUTROPHILS # 6.5 10^3/uL (1.5-8.5); NEUTROPHILS % 76.4 % (36.0-66.0); PLATELET COUNT, AUTOMATED 227 10^3/uL (150-450); RED BLOOD COUNT 3.78 10^6/uL (4.30-6.10); WHITE BLOOD COUNT 8.5 10^3/uL (4.0-10.0)
[2023-11-02 21:12] LABS: CK-MB VALUE MASS 4.9 NG/ML (<3.6)
[2023-11-02 21:14] LABS: ALBUMIN 2.8 G/DL (3.2-5.2); BILIRUBIN,DIRECT 0.4 MG/DL (<0.4); BILIRUBIN,TOTAL 1.1 MG/DL (0.3-1.2); CALCIUM LEVEL 9.4 MG/DL (8.3-10.6); CREATININE FOR GFR 3.46 MG/DL (0.70-1.30); MB/CK RELATIVE INDEX 0.68 (< OR =4); POTASSIUM SERUM 4.1 MMOL/L (3.5-5.1); TOTAL PROTEIN 5.9 G/DL (5.7-8.2)
[2023-11-02 23:14] VITALS: O2SAT 91
[2023-11-02 23:32] LABS: CK-MB VALUE MASS 5.1 NG/ML (<3.6)
[2023-11-02 23:33] LABS: MB/CK RELATIVE INDEX 0.72 (< OR =4)
[2023-11-03] MEDS ORDERED: ACETAMINOPHEN TAB 650MG DOSE (2X325MG) PO PRN (01:25)
[2023-11-03] MEDS ORDERED: GLUCOSE 4 GM CHEW PO PRN (01:30)
[2023-11-03] MEDS ORDERED: DEXTROSE 50% 50ML SYRINGE IV PRN (01:30)
[2023-11-03] MEDS ORDERED: GLUCAGON INJ 1MG VIAL SC PRN (01:30)
[2023-11-03] MEDS ORDERED: HOME MED LIST COMPLETE! XX SCH (03:00)
[2023-11-03] MEDS: HEPARIN SOD (PORCINE) 5000UNITS/ML 1ML VIAL/SYRINGE SC SCH (06:35)
[2023-11-03] MEDS: INSULIN LISPRO (NovoLOG) PER UNIT SC SCH ×2 (07:30→20:30)
[2023-11-03 08:00] VITALS: BP 129/77; TEMP 96; O2SAT 98
[2023-11-03] MEDS: MIDODRINE 5 MG TAB PO SCH (08:00)
[2023-11-03] MEDS: CLOPIDOGREL 75 MG TAB PO SCH (08:31)
[2023-11-03] MEDS ORDERED: SODIUM CHLORIDE 0.9% 1000ML IV PRN (10:10)
[2023-11-03] MEDS ORDERED: HEPARIN 1,000UNITS/ML 10ML VIAL (FOR RADIOLOGY & DIALYSIS ONLY) IV PRN (10:10)
[2023-11-03 10:56] VITALS: BP 94/55; O2SAT 99
[2023-11-03] MEDS: HEPARIN 1,000UNITS/ML 10ML VIAL (FOR RADIOLOGY & DIALYSIS ONLY) XX SCH (11:42)
[2023-11-03 16:40] VITALS: BP 94/51; TEMP 97.7; O2SAT 100
[2023-11-03 18:00] VITALS: BP 94/51; TEMP 97.7; O2SAT 100
[2023-11-03 19:57] VITALS: BP 90/56; TEMP 97.5; O2SAT 98
[2023-11-03] MEDS: ATORVASTATIN 20 MG TAB PO SCH (20:41)
[2023-11-04] VITALS: BP 100/56; TEMP 97.9; O2SAT 99
[2023-11-04 04:15] VITALS: BP 75/41; TEMP 97.9; O2SAT 99
[2023-11-04 04:38] VITALS: BP 92/58
[2023-11-04] MEDS ORDERED: HEPARIN 1,000UNITS/ML 10ML VIAL (FOR RADIOLOGY & DIALYSIS ONLY) IV PRN (06:50)
[2023-11-04] MEDS ORDERED: SODIUM CHLORIDE 0.9% 1000ML IV PRN (06:50)
[2023-11-04] MEDS: HEPARIN 1,000UNITS/ML 10ML VIAL (FOR RADIOLOGY & DIALYSIS ONLY) XX SCH (09:59)
[2023-11-04 12:00] VITALS: BP 94/42; TEMP 97.8
[2023-11-04 13:33] LABS: ALBUMIN 2.9 G/DL (3.2-5.2); BILIRUBIN,DIRECT 0.5 MG/DL (<0.4); BILIRUBIN,TOTAL 1.3 MG/DL (0.3-1.2); TOTAL PROTEIN 5.9 G/DL (5.7-8.2)
[2023-11-04 15:00] VITALS: BP 92/40; TEMP 97.9; O2SAT 96
[2023-11-04 20:57] VITALS: BP 101/66; TEMP 97.9; O2SAT 100
[2023-11-05 00:45] VITALS: BP 95/63; TEMP 98.1; O2SAT 99
[2023-11-05 04:27] VITALS: BP 86/59; TEMP 97.9; O2SAT 100
[2023-11-05 04:40] VITALS: BP 82/44
[2023-11-05] MEDS ORDERED: HEPARIN 1,000UNITS/ML 10ML VIAL (FOR RADIOLOGY & DIALYSIS ONLY) IV PRN (05:25)
[2023-11-05] MEDS ORDERED: SODIUM CHLORIDE 0.9% 1000ML IV PRN (05:25)
[2023-11-05 06:12] LABS: BASO # 0.1 10^3/uL (0.0-0.2); BASO % 0.9 % (0.0-1.0); EOS # 0.2 10^3/uL (0.0-0.5); EOS % 2.7 % (0.0-3.0); HEMATOCRIT 35.4 % (42.0-52.0); HEMOGLOBIN 11.6 g/dl (13.5-17.5); LYMPH # 1.6 10^3/uL (1.5-5.0); LYMPH % 18.4 % (24.0-44.0); MEAN CORPUSCULAR HGB CONC 32.8 g/dl (32.0-36.5); MEAN CORPUSCULAR VOLUME 97.8 fl (80.0-96.0); MONO # 0.9 10^3/uL (0.0-0.8); MONO % 10.4 % (2.0-8.0); NEUTROPHILS # 5.7 10^3/uL (1.5-8.5); PLATELET COUNT, AUTOMATED 203 10^3/uL (150-450); RED BLOOD COUNT 3.62 10^6/uL (4.30-6.10); WHITE BLOOD COUNT 8.6 10^3/uL (4.0-10.0)
[2023-11-05 06:31] LABS: ALBUMIN 2.7 G/DL (3.2-5.2); BILIRUBIN,DIRECT 0.4 MG/DL (<0.4); CALCIUM LEVEL 9.5 MG/DL (8.3-10.6); CREATININE FOR GFR 3.8 MG/DL (0.70-1.30); GLOMERULAR FILTRATION RATE 17.1 (>49); MAGNESIUM LEVEL 1.9 MG/DL (1.8-2.4); PHOSPHORUS LEVEL 3.7 MG/DL (2.4-5.1); POTASSIUM SERUM 4.4 MMOL/L (3.5-5.1); TOTAL PROTEIN 5.7 G/DL (5.7-8.2)
[2023-11-05 08:00] VITALS: BP 76/30; TEMP 97.2; O2SAT 94
[2023-11-05] MEDS: SODIUM CHLORIDE 0.9% 500 ML IV ONE (08:39)
[2023-11-05] MEDS: HEPARIN 1,000UNITS/ML 10ML VIAL (FOR RADIOLOGY & DIALYSIS ONLY) XX SCH (11:49)
[2023-11-05 13:15] VITALS: BP 83/44; TEMP 98.1; O2SAT 93
[2023-11-05 14:59] VITALS: BP 90/58
[2023-11-07 12:00] VITALS: BP 88/67; TEMP 97.2; O2SAT 96
== END 2023-11-05 16:54 | disposition home or self-care (01) | DRG 280 ==
LOC: M ED 19:38 → M ED INP 11-03 01:22 → M MSPAV 11-03 15:37 → OBSVTOIN 11-04 11:13
PROVIDERS: ADMIT Preventive Medicine Undersea and Hyperbaric Medicine; ATTEND Internal Medicine
PROC: 5A1D70Z Performance of Urinary Filtration, Intermittent, Less than 6 Hours Per Day (ICD-10-PCS; principal; 2023-11-03)
PROC: B246ZZZ Ultrasonography of Right and Left Heart (ICD-10-PCS; 2023-11-04)
DX: I13.2 Hypertensive heart and chronic kidney disease with heart failure and with stage 5 chronic kidney disease, or end stage renal disease (principal); I21.A1 Myocardial infarction type 2; N18.6 End stage renal disease; I50.33 Acute on chronic diastolic (congestive) heart failure; E11.22 Type 2 diabetes mellitus with diabetic chronic kidney disease; E78.5 Hyperlipidemia, unspecified; I25.10 Atherosclerotic heart disease of native coronary artery without angina pectoris; E11.51 Type 2 diabetes mellitus with diabetic peripheral angiopathy without gangrene; I73.9 Peripheral vascular disease, unspecified; E11.319 Type 2 diabetes mellitus with unspecified diabetic retinopathy without macular edema; H40.9 Unspecified glaucoma; D64.9 Anemia, unspecified; K21.9 Gastro-esophageal reflux disease without esophagitis; I95.1 Orthostatic hypotension; Z79.02 Long term (current) use of antithrombotics/antiplatelets; Z79.4 Long term (current) use of insulin; Z79.899 Other long term (current) drug therapy; Z95.5 Presence of coronary angioplasty implant and graft; Z91.040 Latex allergy status; Z89.421 Acquired absence of other right toe(s); Z87.891 Personal history of nicotine dependence; Z99.2 Dependence on renal dialysis

== ENCOUNTER → 2023-11-18 | Outpatient (CLI) | payer MEDICARE, OTHER | LOC: M PLAIMG 15:28 | PROVIDERS: ATTEND Physician Assistant | DX: J90 Pleural effusion, not elsewhere classified (principal); J98.11 Atelectasis; I50.9 Heart failure, unspecified ==

== ENCOUNTER 2023-12-03 19:58 | Inpatient (IN) | payer MEDICARE, OTHER ==
[~2023-12-03] VITALS: Ht 172.7 cm; Wt 69.3 kg
[2023-12-03 21:07] LABS: BASO # 0.1 10^3/uL (0.0-0.2); BASO % 0.6 % (0.0-1.0); EOS # 0.1 10^3/uL (0.0-0.5); HEMATOCRIT 39.4 % (42.0-52.0); HEMOGLOBIN 13.1 g/dl (13.5-17.5); LYMPH # 1.1 10^3/uL (1.5-5.0); LYMPH % 11.2 % (24.0-44.0); MEAN CORPUSCULAR HEMOGLOBIN 32.7 pg (27.0-33.0); MEAN CORPUSCULAR HGB CONC 33.2 g/dl (32.0-36.5); MEAN CORPUSCULAR VOLUME 98.3 fl (80.0-96.0); MONO # 0.8 10^3/uL (0.0-0.8); MONO % 8.4 % (2.0-8.0); NEUTROPHILS # 7.8 10^3/uL (1.5-8.5); NEUTROPHILS % 78.5 % (36.0-66.0); PLATELET COUNT, AUTOMATED 300 10^3/uL (150-450); RED BLOOD COUNT 4.01 10^6/uL (4.30-6.10); WHITE BLOOD COUNT 9.9 10^3/uL (4.0-10.0)
[2023-12-03 21:19] LABS: PROTHROMBIN TIME 12.9 SECONDS (12.5-14.5)
[2023-12-03 21:32] LABS: CK-MB VALUE MASS 5.2 NG/ML (<3.6)
[2023-12-03 21:34] LABS: ALBUMIN 3.2 G/DL (3.2-5.2); BILIRUBIN,DIRECT 0.4 MG/DL (<0.4); BILIRUBIN,TOTAL 1.1 MG/DL (0.3-1.2); CALCIUM LEVEL 10.1 MG/DL (8.3-10.6); CREATININE FOR GFR 1.91 MG/DL (0.70-1.30); GLOMERULAR FILTRATION RATE 37.7 (>49); MB/CK RELATIVE INDEX 2.87 (< OR =4); POTASSIUM SERUM 4.1 MMOL/L (3.5-5.1); TOTAL PROTEIN 6.8 G/DL (5.7-8.2)
[2023-12-03 21:36] LABS: THYROID STIMULATING HORMONE 2.556 uIU/ML (0.55-4.78)
[2023-12-04 00:28] VITALS: O2SAT 89
[2023-12-04 09:06] VITALS: BP 102/65; TEMP 98.1; O2SAT 95
[2023-12-04 12:00] VITALS: BP 76/46; TEMP 98.6; O2SAT 99
[2023-12-04] MEDS: INSULIN LISPRO (NovoLOG) PER UNIT SC SCH ×2 (12:00→21:00)
[2023-12-04] MEDS ORDERED: HOME MED LIST COMPLETE! XX SCH (12:35)
[2023-12-04] MEDS ORDERED: GLUCAGON INJ 1MG VIAL SC PRN (12:45)
[2023-12-04] MEDS ORDERED: DEXTROSE 50% 50ML SYRINGE IV PRN (12:45)
[2023-12-04] MEDS ORDERED: GLUCOSE 4 GM CHEW PO PRN (12:45)
[2023-12-04] MEDS: MIDODRINE 5 MG TAB PO SCH (12:49)
[2023-12-04] MEDS: CLOPIDOGREL 75 MG TAB PO SCH (12:50)
[2023-12-04] MEDS: ERYTHROMYCIN OPHTH OINT OD SCH (13:00)
[2023-12-04] MEDS: FUROSEMIDE 20MG/2ML VIAL IV ONE (13:13)
[2023-12-04 14:05] LABS: CALCIUM LEVEL 9.4 MG/DL (8.3-10.6); CREATININE FOR GFR 2.39 MG/DL (0.70-1.30); GLOMERULAR FILTRATION RATE 29.1 (>49); POTASSIUM SERUM 4.2 MMOL/L (3.5-5.1)
[2023-12-04 17:02] LABS: BASO % 0.6 % (0.0-1.0); EOS # 0.1 10^3/uL (0.0-0.5); EOS % 1.4 % (0.0-3.0); HEMATOCRIT 37.4 % (42.0-52.0); HEMOGLOBIN 12.3 g/dl (13.5-17.5); LYMPH % 13.9 % (24.0-44.0); MEAN CORPUSCULAR HEMOGLOBIN 32.1 pg (27.0-33.0); MEAN CORPUSCULAR HGB CONC 32.9 g/dl (32.0-36.5); MEAN CORPUSCULAR VOLUME 97.7 fl (80.0-96.0); MONO # 0.7 10^3/uL (0.0-0.8); MONO % 9.5 % (2.0-8.0); NEUTROPHILS # 5.3 10^3/uL (1.5-8.5); NEUTROPHILS % 74.3 % (36.0-66.0); PLATELET COUNT, AUTOMATED 242 10^3/uL (150-450); RED BLOOD COUNT 3.83 10^6/uL (4.30-6.10); WHITE BLOOD COUNT 7.1 10^3/uL (4.0-10.0)
[2023-12-04] MEDS: HEPARIN SOD (PORCINE) 5000UNITS/ML 1ML VIAL/SYRINGE SQ SCH (17:09)
[2023-12-04 17:13] VITALS: BP 116/56; TEMP 98.1; O2SAT 94
[2023-12-04 20:00] VITALS: BP 116/58; TEMP 97.9; O2SAT 96
[2023-12-04] MEDS: ATORVASTATIN 20 MG TAB PO SCH (21:28)
[2023-12-04] MEDS: allopurinoL 300 MG TAB PO SCH (21:28)
[2023-12-04] MEDS: ARTIFICIAL TEARS DROPS 15ML BTL (VISINE DRY RELIEF) OD SCH (21:28)
[2023-12-05 01:10] VITALS: O2SAT 86
[2023-12-05 01:25] VITALS: O2SAT 95
[2023-12-05 04:00] VITALS: TEMP 98.6; O2SAT 96
[2023-12-05 06:45] LABS: CALCIUM LEVEL 9.1 MG/DL (8.3-10.6); CREATININE FOR GFR 2.02 MG/DL (0.70-1.30); GLOMERULAR FILTRATION RATE 35.4 (>49)
[2023-12-05] MEDS ORDERED: HEPARIN 1,000UNITS/ML 10ML VIAL (FOR RADIOLOGY & DIALYSIS ONLY) XX SCH (08:55)
[2023-12-05] MEDS ORDERED: LIDOCAINE 1% SDV 5ML VIAL SC PRN (08:55)
[2023-12-05] MEDS ORDERED: SODIUM CHLORIDE 0.9% 1000ML IV PRN (08:55)
[2023-12-05] MEDS ORDERED: LEVEMIR (INSULIN DETEMIR) 1 UNITS/0.01ML SC SCH (09:00)
[2023-12-05] MEDS ORDERED: ERYT5OIN25 OP (11:42)
[2023-12-05 12:00] VITALS: BP 119/68; TEMP 98.4; O2SAT 96
[2023-12-05] MEDS: HEPARIN 1,000UNITS/ML 10ML VIAL (FOR RADIOLOGY & DIALYSIS ONLY) IV PRN (15:10)
== END 2023-12-05 18:12 | disposition home or self-care (01) | DRG 291 ==
LOC: M ED 19:58 → M MSPAV 12-04 08:00
PROVIDERS: ADMIT Preventive Medicine Undersea and Hyperbaric Medicine; ATTEND Internal Medicine
PROC: 5A1D70Z Performance of Urinary Filtration, Intermittent, Less than 6 Hours Per Day (ICD-10-PCS; principal; 2023-12-04)
DX: I13.2 Hypertensive heart and chronic kidney disease with heart failure and with stage 5 chronic kidney disease, or end stage renal disease (principal); N18.6 End stage renal disease; R06.02 Shortness of breath; I95.1 Orthostatic hypotension; D64.9 Anemia, unspecified; H10.9 Unspecified conjunctivitis; I95.3 Hypotension of hemodialysis; E11.51 Type 2 diabetes mellitus with diabetic peripheral angiopathy without gangrene; R06.09 Other forms of dyspnea; I50.9 Heart failure, unspecified; I70.219 Atherosclerosis of native arteries of extremities with intermittent claudication, unspecified extremity; E11.22 Type 2 diabetes mellitus with diabetic chronic kidney disease; I25.10 Atherosclerotic heart disease of native coronary artery without angina pectoris; M10.9 Gout, unspecified; E87.70 Fluid overload, unspecified; E78.5 Hyperlipidemia, unspecified; E11.319 Type 2 diabetes mellitus with unspecified diabetic retinopathy without macular edema; K21.9 Gastro-esophageal reflux disease without esophagitis; Z95.1 Presence of aortocoronary bypass graft; Z98.62 Peripheral vascular angioplasty status; Z89.421 Acquired absence of other right toe(s); Z99.2 Dependence on renal dialysis; Z91.040 Latex allergy status; Z79.02 Long term (current) use of antithrombotics/antiplatelets; Z79.899 Other long term (current) drug therapy

== ENCOUNTER 2024-01-04 19:29 | Emergency (ER) | payer MEDICARE, OTHER ==
[~2024-01-04] VITALS: Ht 172.7 cm; Wt 64.5 kg
[~2024-01-04 19:29] MED LIST changes: +ERYT5OIN25 OP
[2024-01-04 23:14] LABS: BASO # 0.1 10^3/uL (0.0-0.2); BASO % 0.6 % (0.0-1.0); EOS # 0.1 10^3/uL (0.0-0.5); EOS % 1.5 % (0.0-3.0); HEMATOCRIT 36.3 % (42.0-52.0); HEMOGLOBIN 12.1 g/dl (13.5-17.5); LYMPH # 1.3 10^3/uL (1.5-5.0); LYMPH % 13.6 % (24.0-44.0); MEAN CORPUSCULAR HGB CONC 33.3 g/dl (32.0-36.5); MEAN CORPUSCULAR VOLUME 98.9 fl (80.0-96.0); MONO # 1.1 10^3/uL (0.0-0.8); MONO % 11.2 % (2.0-8.0); NEUTROPHILS % 72.9 % (36.0-66.0); PLATELET COUNT, AUTOMATED 301 10^3/uL (150-450); RED BLOOD COUNT 3.67 10^6/uL (4.30-6.10); WHITE BLOOD COUNT 9.6 10^3/uL (4.0-10.0)
[2024-01-04 23:33] LABS: ALBUMIN 3.1 G/DL (3.2-5.2); BILIRUBIN,DIRECT 0.3 MG/DL (<0.4); BILIRUBIN,TOTAL 0.9 MG/DL (0.3-1.2); CALCIUM LEVEL 9.4 MG/DL (8.3-10.6); CK-MB VALUE MASS 2.7 NG/ML (<3.6); CREATININE FOR GFR 3.62 MG/DL (0.70-1.30); POTASSIUM SERUM 4.7 MMOL/L (3.5-5.1); TOTAL PROTEIN 6.6 G/DL (5.7-8.2)
[2024-01-04 23:37] LABS: THYROID STIMULATING HORMONE 2.487 uIU/ML (0.55-4.78)
[2024-01-04 23:47] LABS: MB/CK RELATIVE INDEX 2.96 (< OR =4)
[2024-01-05 01:00] VITALS: BP 118/78; TEMP 97.8; O2SAT 98
== END 2024-01-05 02:01 | disposition home or self-care (01) ==
LOC: M ED 19:29
DX: I50.9 Heart failure, unspecified (principal); J90 Pleural effusion, not elsewhere classified; I25.10 Atherosclerotic heart disease of native coronary artery without angina pectoris; E11.9 Type 2 diabetes mellitus without complications; E78.5 Hyperlipidemia, unspecified; Z95.1 Presence of aortocoronary bypass graft; Z79.01 Long term (current) use of anticoagulants; Z79.899 Other long term (current) drug therapy; Z91.040 Latex allergy status

== ENCOUNTER 2024-01-23 15:39 | Inpatient (IN) | payer MEDICARE, OTHER ==
[~2024-01-23] VITALS: Ht 172.7 cm; Wt 57.3 kg
[2024-01-23 16:51] LABS: BASO # 0.1 10^3/uL (0.0-0.2); BASO % 0.6 % (0.0-1.0); EOS # 0.1 10^3/uL (0.0-0.5); EOS % 0.6 % (0.0-3.0); HEMATOCRIT 34.6 % (42.0-52.0); HEMOGLOBIN 11.5 g/dl (13.5-17.5); LYMPH # 1.1 10^3/uL (1.5-5.0); LYMPH % 9.5 % (24.0-44.0); MEAN CORPUSCULAR HGB CONC 33.2 g/dl (32.0-36.5); MEAN CORPUSCULAR VOLUME 99.4 fl (80.0-96.0); MONO % 9.4 % (2.0-8.0); NEUTROPHILS # 8.8 10^3/uL (1.5-8.5); NEUTROPHILS % 79.4 % (36.0-66.0); PLATELET COUNT, AUTOMATED 277 10^3/uL (150-450); RED BLOOD COUNT 3.48 10^6/uL (4.30-6.10); WHITE BLOOD COUNT 11.1 10^3/uL (4.0-10.0)
[2024-01-23 17:22] LABS: ALBUMIN 3.1 G/DL (3.2-5.2); BILIRUBIN,DIRECT 0.4 MG/DL (<0.4); CALCIUM LEVEL 9.7 MG/DL (8.3-10.6); CK-MB VALUE MASS 1.9 NG/ML (<3.6); CREATININE FOR GFR 1.5 MG/DL (0.70-1.30); GLOMERULAR FILTRATION RATE 49.8 (>49); MB/CK RELATIVE INDEX 2.43 (< OR =4); POTASSIUM SERUM 4.1 MMOL/L (3.5-5.1); TOTAL PROTEIN 6.6 G/DL (5.7-8.2)
[2024-01-23 17:24] LABS: THYROXINE (T4) 8.2 UG/DL (4.5-10.9)
[2024-01-23 17:25] LABS: THYROID STIMULATING HORMONE 2.382 uIU/ML (0.55-4.78)
[2024-01-23 18:11] LABS: CK-MB VALUE MASS 2.2 NG/ML (<3.6)
[2024-01-23 18:13] LABS: MB/CK RELATIVE INDEX 2.85 (< OR =4)
[2024-01-23] MEDS: NS 500 ML IV ONE (19:13)
[2024-01-23] MEDS ORDERED: HOME MED LIST COMPLETE! XX SCH (19:20)
[2024-01-23] MEDS ORDERED: MOM 30ML SUSPENSION UDC PO PRN (20:20)
[2024-01-23 20:47] LABS: C REACTIVE PROTEIN QUANTITATIV 3.6 MG/DL (<1.0)
[2024-01-23 20:56] LABS: PROCALCITONIN 0.66 ng/ml
[2024-01-23] MEDS ORDERED: GLUCAGON INJ 1MG VIAL SC PRN (21:15)
[2024-01-23] MEDS ORDERED: DEXTROSE 50% 50ML SYRINGE IV PRN (21:15)
[2024-01-23] MEDS ORDERED: GLUCOSE 4 GM CHEW PO PRN (21:15)
[2024-01-23] MEDS: allopurinoL 300 MG TAB PO SCH (21:46)
[2024-01-23] MEDS: ATORVASTATIN 20 MG TAB PO SCH (21:47)
[2024-01-23 22:00] VITALS: BP 74/47; TEMP 97.7; O2SAT 96
[2024-01-23 22:15] VITALS: O2SAT 88
[2024-01-23 22:20] VITALS: O2SAT 94
[2024-01-23 22:30] VITALS: BP 82/63
[2024-01-23] MEDS: NS 250 ML IV ONE (22:33)
[2024-01-23 22:48] VITALS: BP 83/60
[2024-01-23 23:00] VITALS: O2SAT 88
[2024-01-24] VITALS (10 sets, daily range): BP systolic 77–109; BP diastolic 47–55; TEMP 96.8–97.9; O2SAT 93–99
[2024-01-24] MEDS ORDERED: MIDODRINE 5 MG TAB PO ONE
[2024-01-24] MEDS: cefTRIAXone SOD 1 GM in D5W MINI-BAG PLUS 50 ML IV SCH (05:21)
[2024-01-24] MEDS ORDERED: PIPERACILLIN/TAZOBACTAM SOD 2.25 GM in D5W MINI-BAG PLUS 50 ML IV SCH (06:00)
[2024-01-24 06:09] LABS: HEMATOCRIT 33.5 % (42.0-52.0); HEMOGLOBIN 10.9 g/dl (13.5-17.5); MEAN CORPUSCULAR HEMOGLOBIN 32.8 pg (27.0-33.0); MEAN CORPUSCULAR HGB CONC 32.5 g/dl (32.0-36.5); MEAN CORPUSCULAR VOLUME 100.9 fl (80.0-96.0); PLATELET COUNT, AUTOMATED 213 10^3/uL (150-450); RED BLOOD COUNT 3.32 10^6/uL (4.30-6.10); WHITE BLOOD COUNT 8.5 10^3/uL (4.0-10.0)
[2024-01-24 06:23] LABS: ERYTHROCYTE SEDIMENTATION RATE 15 mm/hr (0-20)
[2024-01-24 06:44] LABS: ALBUMIN 2.7 G/DL (3.2-5.2); BILIRUBIN,TOTAL 0.9 MG/DL (0.3-1.2); CALCIUM LEVEL 9.2 MG/DL (8.3-10.6); CREATININE FOR GFR 2.16 MG/DL (0.70-1.30); GLOMERULAR FILTRATION RATE 32.7 (>49); POTASSIUM SERUM 3.8 MMOL/L (3.5-5.1); TOTAL PROTEIN 5.7 G/DL (5.7-8.2)
[2024-01-24] MEDS: INSULIN LISPRO (NovoLOG) PER UNIT SC SCH ×2 (07:24→20:09)
[2024-01-24] MEDS: CLOPIDOGREL 75 MG TAB PO SCH (08:26)
[2024-01-24] MEDS: MIDODRINE 5 MG TAB PO SCH (08:26)
[2024-01-24] MEDS: FOLIC ACID 1MG TAB PO SCH (08:26)
[2024-01-24] MEDS: HEPARIN SOD (PORCINE) 5000UNITS/ML 1ML VIAL/SYRINGE SQ SCH (08:27)
[2024-01-24] MEDS ORDERED: DOPamine HCL 400 MG in IV 1 EA IV SCH (10:10)
[2024-01-24 10:25] LABS: CK-MB VALUE MASS 1.7 NG/ML (<3.6)
[2024-01-24 10:26] LABS: C REACTIVE PROTEIN QUANTITATIV 2.5 MG/DL (<1.0); CORTISOL BASELINE 31.9 UG/DL (4.3-22.4)
[2024-01-24 10:29] LABS: THYROXINE (T4) 6.8 UG/DL (4.5-10.9)
[2024-01-24 10:30] LABS: THYROID STIMULATING HORMONE 1.433 uIU/ML (0.55-4.78)
[2024-01-24 10:32] LABS: FREE THYROXINE INDEX 2.6 % (1.4-3.8); T UPTAKE 37.8 % (22.5-37.0)
[2024-01-24 10:34] LABS: PROCALCITONIN 0.65 ng/ml
[2024-01-24 10:36] LABS: MB/CK RELATIVE INDEX 2.53 (< OR =4)
[2024-01-25] VITALS (13 sets, daily range): BP systolic 83–123; BP diastolic 37–63; TEMP 96.7–97.7; O2SAT 91–100
[2024-01-25 04:56] LABS: BASO # 0.1 10^3/uL (0.0-0.2); BASO % 0.8 % (0.0-1.0); EOS # 0.2 10^3/uL (0.0-0.5); EOS % 2.4 % (0.0-3.0); HEMATOCRIT 33.4 % (42.0-52.0); HEMOGLOBIN 10.8 g/dl (13.5-17.5); LYMPH % 11.1 % (24.0-44.0); MEAN CORPUSCULAR HEMOGLOBIN 32.5 pg (27.0-33.0); MEAN CORPUSCULAR HGB CONC 32.3 g/dl (32.0-36.5); MEAN CORPUSCULAR VOLUME 100.6 fl (80.0-96.0); MONO # 0.8 10^3/uL (0.0-0.8); NEUTROPHILS # 6.6 10^3/uL (1.5-8.5); NEUTROPHILS % 76.4 % (36.0-66.0); PLATELET COUNT, AUTOMATED 218 10^3/uL (150-450); RED BLOOD COUNT 3.32 10^6/uL (4.30-6.10); WHITE BLOOD COUNT 8.7 10^3/uL (4.0-10.0)
[2024-01-25 05:33] LABS: CALCIUM LEVEL 9.5 MG/DL (8.3-10.6); CREATININE FOR GFR 3.11 MG/DL (0.70-1.30); GLOMERULAR FILTRATION RATE 21.5 (>49); POTASSIUM SERUM 3.9 MMOL/L (3.5-5.1)
[2024-01-25] MEDS ORDERED: HEPARIN 1,000UNITS/ML 10ML VIAL (FOR RADIOLOGY & DIALYSIS ONLY) IV PRN (06:00)
[2024-01-25] MEDS ORDERED: SODIUM CHLORIDE 0.9% 1000ML IV PRN (06:00)
[2024-01-25 07:47] LABS: THYROID STIMULATING HORMONE 1.469 uIU/ML (0.55-4.78); THYROXINE (T4) 6.8 UG/DL (4.5-10.9)
[2024-01-25 07:50] LABS: FREE THYROXINE INDEX 2.6 % (1.4-3.8); T UPTAKE 38.6 % (22.5-37.0)
[2024-01-25] MEDS: HEPARIN 1,000UNITS/ML 10ML VIAL (FOR RADIOLOGY & DIALYSIS ONLY) XX SCH (13:08)
[2024-01-25 15:44] LABS: PH BODY FLUID 7.522 UNITS (NOT ESTABLISHED); SOURCE, BODY FLUID pH PLEURAL
[2024-01-25 15:53] LABS: APPEARANCE, BODY FLUID CLEAR (CLEAR); PLEURAL FL COLOR YELLOW (COLORLESS); SOURCE, BODY FLUID PLEURAL
[2024-01-25 16:11] LABS: SOURCE, BODY FLUID ALBUMIN PLEURAL
[2024-01-25 16:16] LABS: SOURCE, BODY FLUID GLUCOSE PLEURAL; SOURCE, BODY FLUID TRIG PLEURAL; TRIGLYCERIDE, BODY FLUID 24 MG/DL (NOT ESTABLISHED)
[2024-01-25 16:17] LABS: LDH, BODY FLUID 80 U/L (NOT ESTABLISHED); SOURCE, BODY FLUID LDH PLEURAL
[2024-01-25 16:18] LABS: AMYLASE, BODY FLUID 56 U/L (NOT ESTABLISHED); SOURCE, BODY FLUID AMYLASE PLEURAL; SOURCE, BODY FLUID TOT PROTEIN PLEURAL; TOTAL PROTEIN, BODY FLUID 2.4 G/DL (NOT ESTABLISHED)
[2024-01-25 16:19] LABS: CHOLESTEROL, BODY FLUID 36 MG/DL (NOT ESTABLISHED); SOURCE, BODY FLUID CHOL PLEURAL
[2024-01-26] VITALS (12 sets, daily range): BP systolic 65–104; BP diastolic 35–61; TEMP 97.5–98.1; O2SAT 94–100
[2024-01-26] MEDS: MIDODRINE 5 MG TAB PO ONE ×2 (05:15→21:55)
[2024-01-26] MEDS ORDERED: SODIUM CHLORIDE 0.9% 1000ML IV PRN (06:00)
[2024-01-26] MEDS ORDERED: HEPARIN 1,000UNITS/ML 10ML VIAL (FOR RADIOLOGY & DIALYSIS ONLY) IV PRN (06:00)
[2024-01-26 06:29] LABS: BASO % 0.3 % (0.0-1.0); EOS # 0.3 10^3/uL (0.0-0.5); HEMATOCRIT 32.8 % (42.0-52.0); HEMOGLOBIN 10.5 g/dl (13.5-17.5); LYMPH # 0.4 10^3/uL (1.5-5.0); LYMPH % 2.5 % (24.0-44.0); MEAN CORPUSCULAR HEMOGLOBIN 32.2 pg (27.0-33.0); MEAN CORPUSCULAR VOLUME 100.6 fl (80.0-96.0); MONO # 0.7 10^3/uL (0.0-0.8); MONO % 5.2 % (2.0-8.0); NEUTROPHILS # 12.7 10^3/uL (1.5-8.5); NEUTROPHILS % 89.7 % (36.0-66.0); PLATELET COUNT, AUTOMATED 207 10^3/uL (150-450); RED BLOOD COUNT 3.26 10^6/uL (4.30-6.10); WHITE BLOOD COUNT 14.2 10^3/uL (4.0-10.0)
[2024-01-26 06:59] LABS: CREATININE FOR GFR 2.52 MG/DL (0.70-1.30); GLOMERULAR FILTRATION RATE 27.4 (>49); POTASSIUM SERUM 3.7 MMOL/L (3.5-5.1)
[2024-01-26] MEDS: HEPARIN 1,000UNITS/ML 10ML VIAL (FOR RADIOLOGY & DIALYSIS ONLY) XX SCH (08:30)
[2024-01-27] VITALS: BP 84/46; TEMP 97.7; O2SAT 99
[2024-01-27 04:00] VITALS: BP 85/47; TEMP 97.3; O2SAT 98
[2024-01-27 06:00] LABS: BASO # 0.1 10^3/uL (0.0-0.2); BASO % 0.6 % (0.0-1.0); EOS # 0.2 10^3/uL (0.0-0.5); EOS % 1.8 % (0.0-3.0); HEMATOCRIT 32.5 % (42.0-52.0); HEMOGLOBIN 10.3 g/dl (13.5-17.5); LYMPH # 0.7 10^3/uL (1.5-5.0); MEAN CORPUSCULAR HEMOGLOBIN 32.6 pg (27.0-33.0); MEAN CORPUSCULAR HGB CONC 31.7 g/dl (32.0-36.5); MEAN CORPUSCULAR VOLUME 102.8 fl (80.0-96.0); MONO # 0.6 10^3/uL (0.0-0.8); MONO % 7.2 % (2.0-8.0); NEUTROPHILS # 7.3 10^3/uL (1.5-8.5); NEUTROPHILS % 82.1 % (36.0-66.0); PLATELET COUNT, AUTOMATED 201 10^3/uL (150-450); RED BLOOD COUNT 3.16 10^6/uL (4.30-6.10); WHITE BLOOD COUNT 8.9 10^3/uL (4.0-10.0)
[2024-01-27 06:32] LABS: CALCIUM LEVEL 9.4 MG/DL (8.3-10.6); CREATININE FOR GFR 3.86 MG/DL (0.70-1.30); GLOMERULAR FILTRATION RATE 16.7 (>49); POTASSIUM SERUM 4.4 MMOL/L (3.5-5.1)
[2024-01-27 08:00] VITALS: BP 84/44; TEMP 97.7; O2SAT 98
[2024-01-27 12:00] VITALS: BP 85/50; TEMP 97.5; O2SAT 100
[2024-01-27] MEDS: PERMETHRIN 5% CREAM 60 GM TOP ONE (18:55)
[2024-01-27 20:30] VITALS: BP 103/54; TEMP 97.7; O2SAT 100
[2024-01-27 23:40] VITALS: BP 70/39; TEMP 97.9; O2SAT 98
[2024-01-28] VITALS (9 sets, daily range): BP systolic 78–97; BP diastolic 40–83; TEMP 97.1–98.2; O2SAT 97–100
[2024-01-28] MEDS ORDERED: PERMETHRIN 5% CREAM 60 GM TOP SCH
[2024-01-28] MEDS: MIDODRINE 5 MG TAB PO ONE (01:19)
[2024-01-28] MEDS ORDERED: HEPARIN 1,000UNITS/ML 10ML VIAL (FOR RADIOLOGY & DIALYSIS ONLY) IV PRN (06:00)
[2024-01-28] MEDS ORDERED: SODIUM CHLORIDE 0.9% 1000ML IV PRN (06:00)
[2024-01-28 07:12] LABS: BASO % 0.5 % (0.0-1.0); EOS # 0.2 10^3/uL (0.0-0.5); HEMATOCRIT 33.2 % (42.0-52.0); HEMOGLOBIN 10.5 g/dl (13.5-17.5); LYMPH # 0.8 10^3/uL (1.5-5.0); LYMPH % 10.3 % (24.0-44.0); MEAN CORPUSCULAR HEMOGLOBIN 32.6 pg (27.0-33.0); MEAN CORPUSCULAR HGB CONC 31.6 g/dl (32.0-36.5); MEAN CORPUSCULAR VOLUME 103.1 fl (80.0-96.0); MONO # 0.7 10^3/uL (0.0-0.8); NEUTROPHILS # 6.1 10^3/uL (1.5-8.5); NEUTROPHILS % 77.8 % (36.0-66.0); PLATELET COUNT, AUTOMATED 200 10^3/uL (150-450); RED BLOOD COUNT 3.22 10^6/uL (4.30-6.10); WHITE BLOOD COUNT 7.9 10^3/uL (4.0-10.0)
[2024-01-28 07:36] LABS: CALCIUM LEVEL 10.3 MG/DL (8.3-10.6); CREATININE FOR GFR 4.83 MG/DL (0.70-1.30); GLOMERULAR FILTRATION RATE 12.9 (>49); POTASSIUM SERUM 4.7 MMOL/L (3.5-5.1)
[2024-01-28] MEDS: HEPARIN 1,000UNITS/ML 10ML VIAL (FOR RADIOLOGY & DIALYSIS ONLY) XX SCH (10:59)
[2024-01-29] VITALS (34 sets, daily range): BP systolic 84–118; BP diastolic 50–60; TEMP 97.1–98; O2SAT 98–100
[2024-01-29 05:49] LABS: BASO % 0.4 % (0.0-1.0); EOS # 0.2 10^3/uL (0.0-0.5); EOS % 2.3 % (0.0-3.0); HEMATOCRIT 33.2 % (42.0-52.0); HEMOGLOBIN 10.5 g/dl (13.5-17.5); LYMPH # 0.7 10^3/uL (1.5-5.0); LYMPH % 7.4 % (24.0-44.0); MEAN CORPUSCULAR HEMOGLOBIN 32.7 pg (27.0-33.0); MEAN CORPUSCULAR HGB CONC 31.6 g/dl (32.0-36.5); MEAN CORPUSCULAR VOLUME 103.4 fl (80.0-96.0); MONO # 0.8 10^3/uL (0.0-0.8); MONO % 9.3 % (2.0-8.0); NEUTROPHILS # 7.3 10^3/uL (1.5-8.5); NEUTROPHILS % 80.4 % (36.0-66.0); PLATELET COUNT, AUTOMATED 200 10^3/uL (150-450); RED BLOOD COUNT 3.21 10^6/uL (4.30-6.10); WHITE BLOOD COUNT 9.1 10^3/uL (4.0-10.0)
[2024-01-29 06:18] LABS: CALCIUM LEVEL 9.2 MG/DL (8.3-10.6); CREATININE FOR GFR 3.23 MG/DL (0.70-1.30); GLOMERULAR FILTRATION RATE 20.6 (>49); POTASSIUM SERUM 4.1 MMOL/L (3.5-5.1)
[2024-01-29 07:48] LABS: MAGNESIUM LEVEL 2.2 MG/DL (1.8-2.4)
[2024-01-29] MEDS ORDERED: flumazeniL 0.5MG/5ML VIAL IV STA (09:18)
[2024-01-29] MEDS: ceFAZolin SOD 2 GM in IV 1 EA IV ONE (09:39)
[2024-01-29] MEDS: NS 1,000 ML IV SCH (09:40)
[2024-01-29] MEDS: MIDAZOLAM INJ 2MG/2ML VIAL IV STA (09:45)
[2024-01-29] MEDS: LIDOCAINE 1% MDV 20ML VIAL SC STA (09:48)
[2024-01-29] MEDS: ACETAMINOPHEN TAB 650MG DOSE (2X325MG) PO PRN (17:18)
[2024-01-29] MEDS: IPRATROPIUM 0.5MG/ALBUTEROL 2.5MG INH SOL UD 3ML (DUONEB) NEB ONE (21:02)
[2024-01-30 03:26] VITALS: BP 70/35; TEMP 97.3; O2SAT 99
[2024-01-30] MEDS ORDERED: SODIUM CHLORIDE 0.9% 1000ML IV PRN (06:00)
[2024-01-30] MEDS ORDERED: LIDOCAINE 1% SDV 5ML VIAL SC PRN (06:00)
[2024-01-30] MEDS ORDERED: HEPARIN 1,000UNITS/ML 10ML VIAL (FOR RADIOLOGY & DIALYSIS ONLY) IV PRN (06:00)
[2024-01-30 07:56] VITALS: BP 73/44; TEMP 98; O2SAT 100
[2024-01-30 08:06] LABS: BASO % 0.2 % (0.0-1.0); EOS # 0.1 10^3/uL (0.0-0.5); EOS % 0.8 % (0.0-3.0); HEMOGLOBIN 10.2 g/dl (13.5-17.5); LYMPH # 0.5 10^3/uL (1.5-5.0); MEAN CORPUSCULAR HEMOGLOBIN 32.5 pg (27.0-33.0); MEAN CORPUSCULAR HGB CONC 31.9 g/dl (32.0-36.5); MEAN CORPUSCULAR VOLUME 101.9 fl (80.0-96.0); MONO # 0.8 10^3/uL (0.0-0.8); MONO % 6.6 % (2.0-8.0); NEUTROPHILS # 10.6 10^3/uL (1.5-8.5); NEUTROPHILS % 87.9 % (36.0-66.0); PLATELET COUNT, AUTOMATED 200 10^3/uL (150-450); RED BLOOD COUNT 3.14 10^6/uL (4.30-6.10); WHITE BLOOD COUNT 12.1 10^3/uL (4.0-10.0)
[2024-01-30 08:46] LABS: BLOOD UREA NITROGEN 38 MG/DL (9-23); CALCIUM LEVEL 9.2 MG/DL (8.3-10.6); CARBON DIOXIDE LEVEL 24 MMOL/L (20-31); CHLORIDE LEVEL 102 MMOL/L (98-107); CREATININE FOR GFR 4.46 MG/DL (0.70-1.30); GLOMERULAR FILTRATION RATE 14.2 (>49); GLUCOSE, FASTING 95 MG/DL (74-106); POTASSIUM SERUM 4.3 MMOL/L (3.5-5.1); SODIUM LEVEL 135 MMOL/L (136-145)
[2024-01-30] MEDS: HEPARIN 1,000UNITS/ML 10ML VIAL (FOR RADIOLOGY & DIALYSIS ONLY) XX SCH (10:21)
[2024-01-30 10:51] LABS: HEPATITIS B SURFACE ANTIGEN NEGATIVE (NEGATIVE)
[2024-01-30 16:27] VITALS: BP 72/35; TEMP 98.3; O2SAT 100
[2024-01-30 19:57] VITALS: BP 70/40; TEMP 98.1; O2SAT 100
[2024-01-30 23:20] VITALS: BP 75/38; TEMP 97.8; O2SAT 98
[2024-01-31] VITALS (8 sets, daily range): BP systolic 71–87; BP diastolic 35–48; TEMP 96.8–98.2; O2SAT 96–100
[2024-01-31 05:10] LABS: BASO % 0.3 % (0.0-1.0); EOS # 0.3 10^3/uL (0.0-0.5); EOS % 3.1 % (0.0-3.0); HEMATOCRIT 33.1 % (42.0-52.0); HEMOGLOBIN 10.6 g/dl (13.5-17.5); LYMPH # 0.6 10^3/uL (1.5-5.0); LYMPH % 6.5 % (24.0-44.0); MEAN CORPUSCULAR HEMOGLOBIN 32.4 pg (27.0-33.0); MEAN CORPUSCULAR VOLUME 101.2 fl (80.0-96.0); MONO % 10.2 % (2.0-8.0); NEUTROPHILS # 7.5 10^3/uL (1.5-8.5); NEUTROPHILS % 79.5 % (36.0-66.0); PLATELET COUNT, AUTOMATED 217 10^3/uL (150-450); RED BLOOD COUNT 3.27 10^6/uL (4.30-6.10); WHITE BLOOD COUNT 9.5 10^3/uL (4.0-10.0)
[2024-01-31 05:41] LABS: CREATININE FOR GFR 2.91 MG/DL (0.70-1.30); GLOMERULAR FILTRATION RATE 23.2 (>49)
[2024-02-01] VITALS (7 sets, daily range): BP systolic 73–92; BP diastolic 39–50; TEMP 97.2–98.1; O2SAT 98–100
[2024-02-02] VITALS (10 sets, daily range): BP systolic 74–100; BP diastolic 38–52; TEMP 97–98.3; O2SAT 95–99
[2024-02-02] MEDS ORDERED: SODIUM CHLORIDE 0.9% 1000ML IV PRN (06:00)
[2024-02-02] MEDS ORDERED: LIDOCAINE 1% SDV 5ML VIAL SC PRN (06:00)
[2024-02-02] MEDS ORDERED: HEPARIN 1,000UNITS/ML 10ML VIAL (FOR RADIOLOGY & DIALYSIS ONLY) IV PRN (06:00)
[2024-02-02 06:33] LABS: CALCIUM LEVEL 9.6 MG/DL (8.3-10.6); CREATININE FOR GFR 5.06 MG/DL (0.70-1.30); GLOMERULAR FILTRATION RATE 12.3 (>49); MAGNESIUM LEVEL 2.5 MG/DL (1.8-2.4); POTASSIUM SERUM 3.7 MMOL/L (3.5-5.1)
[2024-02-02] MEDS: HEPARIN 1,000UNITS/ML 10ML VIAL (FOR RADIOLOGY & DIALYSIS ONLY) XX SCH (08:53)
[2024-02-02] MEDS: MIDODRINE 5 MG TAB PO ONE (16:14)
[2024-02-03] VITALS (68 sets, daily range): BP systolic 66–153; BP diastolic 29–97; TEMP 95.9–102.2; O2SAT 80–100
[2024-02-03 06:04] LABS: CALCIUM LEVEL 9.2 MG/DL (8.3-10.6); CREATININE FOR GFR 3.1 MG/DL (0.70-1.30); GLOMERULAR FILTRATION RATE 21.6 (>49); MAGNESIUM LEVEL 2.2 MG/DL (1.8-2.4)
[2024-02-03] MEDS: ceFAZolin SOD 2 GM in IV 1 EA IV ONE (09:32)
[2024-02-03] MEDS ORDERED: flumazeniL 0.5MG/5ML VIAL As Ordered ONE (10:03)
[2024-02-03] MEDS ORDERED: LIDOCAINE 1% MDV 20ML VIAL As Ordered ONE (10:04)
[2024-02-03] MEDS ORDERED: MIDAZOLAM INJ 2MG/2ML VIAL As Ordered ONE (10:04)
[2024-02-03] MEDS: MIDAZOLAM INJ 2MG/2ML VIAL IV ONE ×2 (10:25→10:39)
[2024-02-03] MEDS: LIDOCAINE 1% MDV 20ML VIAL SC ONE (10:30)
[2024-02-03] MEDS: PERMETHRIN 5% CREAM 60 GM TOP ONE (11:00)
[2024-02-03] MEDS: flumazeniL 0.5MG/5ML VIAL IV STA ×3 (11:44→15:10)
[2024-02-03] MEDS: SODIUM CHLORIDE 0.9% 1000ML IV ONE (11:49)
[2024-02-03] MEDS ORDERED: PROPOFOL 1,000 MG/100 ML VIAL As Ordered ONE (15:36)
[2024-02-03] MEDS ORDERED: MIDAZOLAM 5MG/ML 1ML VIAL As Ordered ONE (15:36)
[2024-02-03] MEDS: NOREPINEPHRINE 4MG IN D5 250ML 4 MG in IV 1 EA IV SCH (16:00)
[2024-02-03] MEDS: ETOMIDATE INJ 20MG/10ML VIAL IV STA (16:53)
[2024-02-03] MEDS ORDERED: ROCURONIUM BROMIDE 50MG/5ML VIAL IV SCH (16:55)
[2024-02-03] MEDS: FAMOTIDINE IV BAG 20 MG in IV 1 EA IV SCH (20:38)
[2024-02-03 21:12] LABS: ALBUMIN 3.3 G/DL (3.2-5.2); BILIRUBIN,DIRECT 0.4 MG/DL (<0.4); TOTAL PROTEIN 6.5 G/DL (5.7-8.2)
[2024-02-03] MEDS: propofoL 1,000 MG in IV 1 EA IV SCH (21:40)
[2024-02-03] MEDS: ACETAMINOPHEN *IV* 500 MG in IV 1 EA IV ONE (22:06)
[2024-02-03] MEDS ORDERED: PIPERACILLIN/TAZOBACTAM SOD 4.5 GM in D5W MINI-BAG PLUS 50 ML IV SCH (23:00)
[2024-02-03 23:41] LABS: BASO # 0.1 10^3/uL (0.0-0.2); BASO % 0.4 % (0.0-1.0); EOS % 0.2 % (0.0-3.0); HEMATOCRIT 32.4 % (42.0-52.0); LYMPH # 0.9 10^3/uL (1.5-5.0); LYMPH % 5.5 % (24.0-44.0); MEAN CORPUSCULAR HEMOGLOBIN 33.3 pg (27.0-33.0); MEAN CORPUSCULAR VOLUME 98.2 fl (80.0-96.0); MONO # 1.6 10^3/uL (0.0-0.8); NEUTROPHILS # 13.6 10^3/uL (1.5-8.5); NEUTROPHILS % 83.5 % (36.0-66.0); PLATELET COUNT, AUTOMATED 335 10^3/uL (150-450); WHITE BLOOD COUNT 16.3 10^3/uL (4.0-10.0)
[2024-02-03 23:54] LABS: ABG BASE EXCESS 3.1 (-2.0-2.0); ABG HCO3 24.7 MMOL/L (22.0-26.0); ABG PARTIAL PRESSURE CO2 28.3 mmHg (35.0-45.0); ABG PARTIAL PRESSURE O2 111.3 mmHg (75.0-100.0); ABG STANDARD HCO3 27.3 MMOL/L. (22.0-26.0); ABG TOTAL CO2 25.5 MMOL/L (23.0-31.0); ABG pH (ARTERIAL) 7.558 UNITS (7.350-7.450)
[2024-02-04] VITALS (83 sets, daily range): BP systolic 64–137; BP diastolic 21–98; TEMP 98.6–102.4; O2SAT 94–100
[2024-02-04] MEDS: PIPERACILLIN/TAZOBACTAM SOD 4.5 GM in D5W MINI-BAG PLUS 50 ML IV SCH
[2024-02-04] MEDS: VANCOMYCIN HCL 500 MG in D5W MINI-BAG PLUS 100 ML IV ONE (01:24)
[2024-02-04] MEDS: VANCOMYCIN HCL 750 MG, VIAL MATE ADAPTER 1 EACH in D5W 250 ML IV ONE (02:28)
[2024-02-04] MEDS ORDERED: SODIUM CHLORIDE 0.9% 1000ML IV PRN (06:00)
[2024-02-04] MEDS ORDERED: HEPARIN 1,000UNITS/ML 10ML VIAL (FOR RADIOLOGY & DIALYSIS ONLY) IV PRN (06:00)
[2024-02-04] MEDS ORDERED: VANCOMYCIN HCL 1,000 MG, VIAL MATE ADAPTER 1 EACH in D5W 250 ML IV SCH (06:00)
[2024-02-04] MEDS ORDERED: LIDOCAINE 1% SDV 5ML VIAL SC PRN (06:00)
[2024-02-04 06:04] LABS: BASO # 0.1 10^3/uL (0.0-0.2); BASO % 0.7 % (0.0-1.0); EOS # 0.1 10^3/uL (0.0-0.5); EOS % 0.5 % (0.0-3.0); HEMATOCRIT 34.2 % (42.0-52.0); HEMOGLOBIN 11.4 g/dl (13.5-17.5); MEAN CORPUSCULAR HEMOGLOBIN 32.6 pg (27.0-33.0); MEAN CORPUSCULAR HGB CONC 33.3 g/dl (32.0-36.5); MEAN CORPUSCULAR VOLUME 97.7 fl (80.0-96.0); MONO # 1.9 10^3/uL (0.0-0.8); MONO % 11.1 % (2.0-8.0); NEUTROPHILS # 14.1 10^3/uL (1.5-8.5); NEUTROPHILS % 81.2 % (36.0-66.0); PLATELET COUNT, AUTOMATED 343 10^3/uL (150-450); WHITE BLOOD COUNT 17.3 10^3/uL (4.0-10.0)
[2024-02-04 06:31] LABS: VANCOMYCIN RANDOM 22.2 UG/ML
[2024-02-04 06:44] LABS: CALCIUM LEVEL 10.1 MG/DL (8.3-10.6); CREATININE FOR GFR 3.94 MG/DL (0.70-1.30); GLOMERULAR FILTRATION RATE 16.4 (>49); MAGNESIUM LEVEL 2.2 MG/DL (1.8-2.4)
[2024-02-04] MEDS: ACETAMINOPHEN *IV* 1,000 MG in IV 1 EA IV ONE (09:00)
[2024-02-04] MEDS: NOREPINEPHRINE 4MG IN D5 250ML 4 MG in IV 1 EA IV SCH (09:27)
[2024-02-04] MEDS ORDERED: VANCOMYCIN HCL 1,000 MG, VIAL MATE ADAPTER 1 EACH in NS 250 ML IV SCH (15:00)
[2024-02-04] MEDS ORDERED: VANCOMYCIN HCL 750 MG, VIAL MATE ADAPTER 1 EACH in D5W 250 ML IV SCH (16:00)
[2024-02-04] MEDS: HEPARIN 1,000UNITS/ML 10ML VIAL (FOR RADIOLOGY & DIALYSIS ONLY) XX SCH (18:37)
[2024-02-04] MEDS ORDERED: ONDANSETRON 4MG 2ML VIAL IV PRN (18:55)
[2024-02-04] MEDS ORDERED: LORazepam 2 MG/ML 1ML VIAL IV PRN (18:55)
[2024-02-04] MEDS ORDERED: SCOPOLAMINE 1MG TRANSDERMAL PATCH TOP PRN (18:55)
[2024-02-04] MEDS: MORPHINE 2 MG/ML 1ML VIAL IV PRN (18:59)
[2024-02-05] MEDS ORDERED: PANTOPRAZOLE 40MG VIAL IV SCH (09:00)
== END 2024-02-04 22:52 | disposition expired | DRG 208 ==
LOC: M ED 15:39 → M ED INP 20:20 → M MSPAV 21:55 → M ICU 01-24 11:08 → M MSPAV 01-25 18:36 → M PCU 01-28 15:17 → M ICU 02-03 15:35
PROVIDERS: ADMIT Student in an Organized Health Care Education/Training Program; ATTEND Student in an Organized Health Care Education/Training Program
PROC: 30233J1 Transfusion of Nonautologous Serum Albumin into Peripheral Vein, Percutaneous Approach (ICD-10-PCS; 2024-01-24)
PROC: B246ZZZ Ultrasonography of Right and Left Heart (ICD-10-PCS; 2024-01-24)
PROC: 0W9B3ZZ Drainage of Left Pleural Cavity, Percutaneous Approach (ICD-10-PCS; 2024-01-25)
PROC: 5A1D70Z Performance of Urinary Filtration, Intermittent, Less than 6 Hours Per Day (ICD-10-PCS; 2024-01-25)
PROC: 0W9930Z Drainage of Right Pleural Cavity with Drainage Device, Percutaneous Approach (ICD-10-PCS; 2024-01-29)
PROC: 5A1945Z Respiratory Ventilation, 24-96 Consecutive Hours (ICD-10-PCS; principal; 2024-02-03)
PROC: 0BH17EZ Insertion of Endotracheal Airway into Trachea, Via Natural or Artificial Opening (ICD-10-PCS; 2024-02-03)
PROC: 0W9B30Z Drainage of Left Pleural Cavity with Drainage Device, Percutaneous Approach (ICD-10-PCS; 2024-02-03)
PROC: 0W9930Z Drainage of Right Pleural Cavity with Drainage Device, Percutaneous Approach (ICD-10-PCS; 2024-02-04)
DX: J90 Pleural effusion, not elsewhere classified (principal); N18.6 End stage renal disease; I50.23 Acute on chronic systolic (congestive) heart failure; G93.41 Metabolic encephalopathy; J69.0 Pneumonitis due to inhalation of food and vomit; J96.01 Acute respiratory failure with hypoxia; I13.2 Hypertensive heart and chronic kidney disease with heart failure and with stage 5 chronic kidney disease, or end stage renal disease; E46 Unspecified protein-calorie malnutrition; J98.11 Atelectasis; Z66 Do not resuscitate; Z99.2 Dependence on renal dialysis; I25.10 Atherosclerotic heart disease of native coronary artery without angina pectoris; Z95.5 Presence of coronary angioplasty implant and graft; I73.9 Peripheral vascular disease, unspecified; E11.22 Type 2 diabetes mellitus with diabetic chronic kidney disease; E11.319 Type 2 diabetes mellitus with unspecified diabetic retinopathy without macular edema; E78.5 Hyperlipidemia, unspecified; Z87.891 Personal history of nicotine dependence; Z89.421 Acquired absence of other right toe(s); K80.20 Calculus of gallbladder without cholecystitis without obstruction; K21.9 Gastro-esophageal reflux disease without esophagitis; E11.42 Type 2 diabetes mellitus with diabetic polyneuropathy; E11.51 Type 2 diabetes mellitus with diabetic peripheral angiopathy without gangrene; I95.89 Other hypotension; L89.152 Pressure ulcer of sacral region, stage 2